=== PATIENT | female | born 1985 | race Two or more races ===

== ENCOUNTER 2017-05-07 10:57 | Inpatient (IN) | payer MEDICAID, OTHER ==
[~2017-05-07] VITALS: Ht 170.2 cm; Wt 25.2 kg
[~2017-05-07 10:57] MED LIST: NICOTINE 14 MG/24 HR TRANSDERMAL TD SCH
[2017-05-07] MEDS ORDERED: IRON18TA2 PO (11:06)
[2017-05-07] MEDS ORDERED: SUCR1TA PO (11:06)
[2017-05-07] MEDS ORDERED: NS 1,000 ML IV ONE (12:15)
[2017-05-07] MEDS ORDERED: SUCRALFATE 1 GM TAB PO ONE (12:15)
[2017-05-07] MEDS ORDERED: PANTOPRAZOLE 40MG INJ (PROTONIX) (C9113) IV ONE (12:15)
[2017-05-07] MEDS ORDERED: ONDANSETRON 4MG/2ML VIAL (J2405) IV ONE (12:15)
[2017-05-07 13:12] LABS: CONTROL LINE HCG INT CTR LINE PRESENT
[2017-05-07 13:18] LABS: INR 0.9
[2017-05-07 13:21] LABS: ALBUMIN 3.8 GM/DL (3.2-5.2); ALBUMIN/GLOBULIN RATIO 1.23 (1.00-1.93); ALKALINE PHOSPHATASE 37 U/L (45-117); ALT/SGPT 34 U/L (12-78); AMYLASE 30 U/L (25-115); ANION GAP 8 MEQ/L (8-16); AST/SGOT 21 U/L (15-37); BILIRUBIN,DIRECT 0.2 MG/DL (0.0-0.2); BILIRUBIN,TOTAL 0.7 MG/DL (0.2-1.0); BLOOD UREA NITROGEN 27 MG/DL (7-18); CALCIUM LEVEL 8.8 MG/DL (8.5-10.1); CARBON DIOXIDE LEVEL 28 MEQ/L (21-32); CHLORIDE LEVEL 102 MEQ/L (98-107); CREATININE FOR GFR 0.58 MG/DL (0.55-1.02); GLOMERULAR FILTRATION RATE > 60.0 (>60); GLUCOSE, FASTING 101 MG/DL (70-105); POTASSIUM SERUM 4.4 MEQ/L (3.5-5.1); SODIUM LEVEL 138 MEQ/L (136-145); TOTAL PROTEIN 6.9 GM/DL (6.4-8.2)
[2017-05-07 13:22] LABS: BASO % 0.2 % (0.0-1.0); EOS # 0.1 K/mm3 (0.0-0.50); EOS % 0.6 % (0.0-3.0); LARGE UNSTAINED CELL # 0.1 K/mm3 (0.0-0.4); LARGE UNSTAINED CELL % 0.7 % (0.0-4.0); LYMPH # 0.7 K/mm3 (1.5-4.5); LYMPH % 5.5 % (24.0-44.0); MEAN CORPUSCULAR HEMOGLOBIN 31.7 pg (27.0-33.0); MEAN CORPUSCULAR HGB CONC 33.4 g/dl (32.0-36.5); MEAN CORPUSCULAR VOLUME 95.1 fl (80.0-96.0); MONO # 0.8 K/mm3 (0.0-0.8); MONO % 6.6 % (0.0-5.0); NEUTROPHILS % 86.4 % (36.0-66.0); PLATELET COUNT, AUTOMATED 195 k/mm3 (150-450); RED CELL DISTRIBUTION WIDTH 12.5 % (11.5-14.5); WHITE BLOOD COUNT 11.6 K/mm3 (4.0-10.0)
[2017-05-07] MEDS ORDERED: FERR1TAB8 PO (13:30)
--- NOTE | 2017-05-07 13:54 | REP ---
Clinical: Acute abdominal pain. Technique: Upright view of the chest with supine and upright views of the abdomen and pelvis. Findings: Frontal upright view of the chest demonstrates no acute cardiopulmonary process or free air below the diaphragm to suspect pneumoperitoneum. Supine and upright views of the abdomen and pelvis demonstrate nonspecific bowel gas pattern without obstruction or perforation. No organomegaly. No abnormal calcifications. Skeletal structures normal for age. Impression: Nonspecific bowel gas pattern. Signed by Oswaldo Lora MD 05/07/2017 01:45 P
[2017-05-07] MEDS: NS 1,000 ML IV SCH ×2 (14:14→20:47)
[2017-05-07 15:30] VITALS: BP 121/65
[2017-05-07] MEDS: SUCRALFATE 1 GM TAB PO SCH ×2 (16:47→20:46)
[2017-05-07] MEDS ORDERED: PROPOFOL 200 MG/20 ML VIAL As Ordered ONE (19:13)
--- NOTE | 2017-05-07 19:24 | ROOR ---
Patient Name: Mora Samuel Procedure Date: 05/07/2017 6:58 PM Date of : 1985 Age: 32 Room: Main OR Gender: Female Note Status: Finalized Procedure: Upper GI endoscopy Indications: Hematemesis Providers: Gilberto LIMA MD Referring MD: 2. Inpatient 2. Inpatient Requesting Provider: Medicines: Monitored Anesthesia Care Complications: No immediate complications. Procedure: Pre-Anesthesia Assessment: - The heart rate, respiratory rate, oxygen saturations, blood pressure, adequacy of pulmonary ventilation, and response to care were monitored throughout the procedure. The Endoscope was introduced through the mouth, and advanced to the second part of duodenum. The upper GI endoscopy was accomplished without difficulty. The patient tolerated the procedure well. Findings: A medium non-bleeding Rose Marie-Porter tear with stigmata of recent bleeding was found. The exam was otherwise without abnormality. Impression: - Rose Marie-Porter tear in distal esophagus with surrounding erythema. - The examination was otherwise normal. - No specimens collected. Recommendation: - Clear liquid diet today.Observe patient's clinical course for rebleeding over 24 hrs. - Continue IV protonix today, then can change to 40 PO bid tomorrow. Gilberto Lima MD Gilberto LIMA MD 05/07/2017 7:24:07 PM This report has been signed electronically. Number of Addenda: 0 Note Initiated On: 05/07/2017 6:58 PM Estimated Blood Loss: Estimated blood loss: none.
[2017-05-07] MEDS ORDERED: LR 1,000 ML IV SCH (19:45)
[2017-05-07 20:25] VITALS: BP 121/77
[2017-05-07] MEDS ORDERED: NICOTINE 14 MG/24 HR TRANSDERMAL TD ONE (20:30)
[2017-05-07 20:40] VITALS: BP 116/76
--- NOTE | 2017-05-07 21:00 | HPE ---
DATE OF ADMISSION: 05/07/2017 CODE STATUS: Full code. PRIMARY CARE PROVIDER: None listed. CHIEF COMPLAINT: Abdominal pain with hematemesis. HISTORY OF PRESENT ILLNESS: A 32-year-old female who was in her normal state of health until this morning when she stated that she has had three episodes of hematemesis which initially started out as dark tarry-looking emesis that had progressed to bright red blood. She has had one bowel movement this morning which additionally did appear to be chrissy and melanotic, and she has had some vague upper abdominal dull achy, abdominal pain with no radiation to her back. She has had a decreased appetite. She does smoke a pack a day. She drinks alcohol on rare occasion, but did have a couple of beers last night. She denies any history of trauma. No previous history of gastric or peptic ulcer disease. She states that she has never had an esophagogastroduodenoscopy (EGD) or colonoscopy. PAST MEDICAL HISTORY: 1. History of iron-deficiency anemia. 2. Tobacco use. PAST SURGICAL HISTORY: Two (C) sections in the past. FAMILY HISTORY: Hypertensive heart disease with her father. SOCIAL HISTORY: She lives at home with her partner. She smokes a pack a day. She drinks alcohol, sometimes two beers per week. No recent travel. No sick contacts. ALLERGIES: No known drug allergies. HOME MEDICATIONS: Carafate which she takes sporadically. REVIEW OF SYSTEMS: CONSTITUTIONAL: She denies fevers, chills, rigors, decreased appetite. HEENT: She denies headache, lightheadedness, dizziness, blurry vision, double vision, or tinnitus. No difficulty with speech or swallow. GASTROINTESTINAL (GI): Hematemesis times three along with melena times one this morning, vague epigastric abdominal dull, achy pain. No radiation to her back. PULMONARY: No history of asthma. No shortness breath, productive sputum, cough , or hemoptysis. CARDIOVASCULAR: She denies chest pain, paroxysmal nocturnal dyspnea (PND), or orthopnea. No palpitations. No lower extremity edema. GENITOURINARY (): No dysuria, frequency, or hematuria. MUSCULOSKELETAL: No bone, muscle or joint pain, swelling or erythema. NEUROLOGIC: No paresthesias or paralysis. LYMPHATICS: No lumps, bumps, swelling of the neck, axilla or groin. No night sweats. No weight loss. HEMATOLOGY: No history of bleeding or bruising disorder. No history of venous thromboembolism. ONCOLOGY: No history of cancer. ENDOCRINE: Negative for diabetes. Negative for thyroid disorder. PSYCHIATRIC: No history of depression or anxiety. No suicidal ideation. No audiovisual hallucination. 10-point review of systems complete and pertinent positives are listed. PHYSICAL EXAMINATION: VITAL SIGNS: Temperature is 98.7, pulse 98, respiratory rate 18 and nonlabored, blood pressure is 123/73, SpO2 is 96% on room air. GENERAL: The patient appears to be in no acute distress. She is alert, oriented, pleasant to talk to. HEENT: Head is atraumatic, normocephalic. Eyes: Pupils are equal, round, and reactive to light and accommodation, nonicteric. No pallor. Throat is clear. NECK: Supple. No jugular venous distention (JVD). LUNGS: Clear to auscultation. HEART: Regular rate and rhythm. ABDOMEN: Vague epigastric tenderness with no rebound. Positive bowel sounds with no guarding. EXTREMITIES: No edema. No calf tenderness. Good range of motion. Deep tendon reflexes (DTRs) 2+ over 4+, pulses were equal. NEUROLOGIC: Cranial nerves II-XII grossly intact. LABORATORY DATA: White count 11.6, hemoglobin 13, platelets 195,000. Sodium 138, potassium 4.4, chloride 102, bicarbonate 28, anion gap 8, BUN is 27, creatinine 0.58, glucose is 101, calcium is 8.8, total bilirubin 0.7, direct bilirubin 0.2, AST 21, ALT 34, alkaline phosphatase 37, albumin 3.8, lipase 85. Serum hCG is negative. INR is 0.90. Blood consent was updated. Abdominal series, flat, upright and PA chest, nonspecific bowel gas pattern. No free air under the diaphragm. No acute cardiopulmonary processes noted. IMPRESSION: Ms. Samuel is a 32-year-old female who presents with new onset of hematemesis which appears to be an upper gastrointestinal (GI) bleed. At this point, she has received Protonix, Zofran and Carafate. She will need to be admitted for further observation, repeat hemoglobin and hematocrit, as well as to see if she needs to have blood transfusion which she does not appear to be in an immediate need of at this time. PROBLEM LIST: 1. Upper gastrointestinal (GI) bleed. 2. History of iron-deficiency anemia. 3. Tobacco use. 4. Occasional alcohol use. PLAN: The patient will be admitted to the medical/surgical floor. We will continue to cycle her vital signs, repeat hemoglobin and hematocrit every six hours. She is nothing by mouth currently. However, I will discuss the case with gastroenterology (GI). If she is planned to have an esophagogastroduodenoscopy (EGD) tomorrow, we will likely give her a clear-liquid diet and nothing by mouth after midnight. Deep vein thrombosis (DVT) prophylaxis with thromboembolic-deterrent stockings (TEDS) and sequentials. DISPOSITION: Anticipate the patient will be here greater than 2 midnights. She was encouraged to stay away from alcohol and also encouraged smoking cessation and education provided at bedside. MTDD
[2017-05-07 21:10] VITALS: BP 118/74
[2017-05-07 21:40] VITALS: BP 117/78
[2017-05-07 22:40] VITALS: BP 97/54
[2017-05-07] MEDS: PANTOPRAZOLE 40MG INJ (PROTONIX) (C9113) IV SCH (23:51)
[2017-05-08] VITALS (10 sets, daily range): BP systolic 101–113; BP diastolic 65–82
[2017-05-08] MEDS: NS 1,000 ML IV SCH ×3 (04:28→22:43)
[2017-05-08 07:25] LABS: MEAN CORPUSCULAR HGB CONC 33.3 g/dl (32.0-36.5); MEAN CORPUSCULAR VOLUME 96.1 fl (80.0-96.0); RED CELL DISTRIBUTION WIDTH 12.6 % (11.5-14.5); WHITE BLOOD COUNT 8.3 K/mm3 (4.0-10.0)
[2017-05-08 07:45] LABS: ANION GAP 7 MEQ/L (8-16); BLOOD UREA NITROGEN 8 MG/DL (7-18); CALCIUM LEVEL 7.4 MG/DL (8.5-10.1); CARBON DIOXIDE LEVEL 25 MEQ/L (21-32); CHLORIDE LEVEL 110 MEQ/L (98-107); CREATININE FOR GFR 0.46 MG/DL (0.55-1.02); GLOMERULAR FILTRATION RATE > 60.0 (>60); GLUCOSE, FASTING 83 MG/DL (70-105); POTASSIUM SERUM 3.7 MEQ/L (3.5-5.1); SODIUM LEVEL 142 MEQ/L (136-145)
[2017-05-08] MEDS: SUCRALFATE 1 GM TAB PO SCH ×4 (08:53→20:02)
[2017-05-08] MEDS: NICOTINE 14 MG/24 HR TRANSDERMAL TD SCH (08:54)
[2017-05-08] MEDS: PANTOPRAZOLE 40MG INJ (PROTONIX) (C9113) IV SCH ×2 (12:32→23:28)
--- NOTE | 2017-05-08 14:01 | IPN ---
DATE: 05/08/2017 Ms. Samuel is feeling well today. She is tolerating a full liquid diet. There are no complaints of pain, chest pain, shortness of breath. In fact, she would like to go home. PHYSICAL EXAMINATION: VITAL SIGNS: Temperature 98.6, pulse 81, respiratory rate 18, blood pressure 113/79, 99% on room air. No bowel movements. She is awake, appropriately interactive, pleasantly conversant. Breathing is symmetrical and rested. Heart is regular rate and rhythm. Abdomen is soft, doughy, nontender. White cell count 8.3, hemoglobin 9.3, platelets of 145. Repeat hemoglobin this noontime is 9.8. Creatinine 0.46. ASSESSMENT: This is a 32-year-old with Rose Marie-Porter tear and acute blood loss anemia. PLAN: 1. Gastrointestinal. Discussed the case with Dr. Lopez. He estimates that there is a 20% risk of rebleeding in this instance. Recommend continuing full liquid diet and monitoring hemoglobin and hematocrit and if the patient goes without rebleeding for 48 to 72 hours from the last bleeding episode, can likely be discharged home without difficulty. 2. The patient has a history of iron deficiency anemia. 3. The patient has a history of tobacco use. 4. The patient has a history or occasional alcohol use.
[2017-05-08] MEDS ORDERED: ACETAMINOPHEN TAB 650MG DOSE (2X325MG) PO PRN (18:15)
[2017-05-08] MEDS ORDERED: diphenhydrAMINE 25 MG CAP PO ONE (22:15)
[2017-05-09 04:00] VITALS: BP 91/71
[2017-05-09] MEDS: NS 1,000 ML IV SCH ×2 (06:25→14:21)
[2017-05-09] MEDS: SUCRALFATE 1 GM TAB PO SCH ×2 (08:41→12:46)
[2017-05-09] MEDS: NICOTINE 14 MG/24 HR TRANSDERMAL TD SCH (08:41)
[2017-05-09 09:26] LABS: MEAN CORPUSCULAR HGB CONC 34.3 g/dl (32.0-36.5); MEAN CORPUSCULAR VOLUME 96.3 fl (80.0-96.0); RED CELL DISTRIBUTION WIDTH 12.2 % (11.5-14.5); WHITE BLOOD COUNT 4.8 K/mm3 (4.0-10.0)
[2017-05-09 09:55] LABS: ANION GAP 5 MEQ/L (8-16); BLOOD UREA NITROGEN 3 MG/DL (7-18); CALCIUM LEVEL 8.2 MG/DL (8.5-10.1); CARBON DIOXIDE LEVEL 30 MEQ/L (21-32); CHLORIDE LEVEL 107 MEQ/L (98-107); CREATININE FOR GFR 0.46 MG/DL (0.55-1.02); GLOMERULAR FILTRATION RATE > 60.0 (>60); GLUCOSE, FASTING 76 MG/DL (70-105); SODIUM LEVEL 142 MEQ/L (136-145)
[2017-05-09] MEDS: PANTOPRAZOLE 40MG INJ (PROTONIX) (C9113) IV SCH (12:46)
[2017-05-09 14:00] VITALS: BP 97/60
[2017-05-09] MEDS ORDERED: OMEP40CA2 PO (15:46)
[2017-05-09] MEDS ORDERED: NICO14PA TD (15:46)
--- NOTE | 2017-05-09 16:59 | DSES ---
DATE OF ADMISSION: 05/07/2017 DATE OF DISCHARGE: 05/09/2017 PROCEDURE PERFORMED DURING HER STAY: Include esophagogastroduodenoscopy (EGD). No complications during her stay. DISCHARGE DIAGNOSES: 1. Acute blood loss anemia not requiring transfusion. 2. Rose Marie-Porter tear. 3. Iron deficiency anemia. 4. Tobacco use. SUMMARY OF HER PRESENTATION: This is a 32-year-old who had episodes of vomiting and retching which went on to develop hematemesis which is quite noticeable. She went on to have melanotic stool. She came to the hospital for evaluation. She was seen by Dr. Lopez, had an esophagogastroduodenoscopy (EGD), and fount to have a Mallor-Porter tear. She was monitored for approximately 48 hours from her last episode of bleeding. Hemoglobin and hematocrit was stable. She was tolerating an advancing diet and felt ready to go home. On the date of discharge, temperature is 97.6, pulse 93, respiratory rate 20, blood pressure was 97/60, and asymptomatic with a stable hemoglobin and hematocrit. Mucous membranes moist. Neck is supple. Breathing is symmetrical and rested. Heart is in a regular rate and rhythm, not tachycardic. LABORATORY DATA: White cell count 4.8, hemoglobin 10.2, and platelets of 172. BUN is 3, creatinine 0.46. DISCHARGE INSTRUCTIONS: Include the followin. Followup with [facility] 05/19/2017 at 2:15 p.m. 2. Diet and activity as tolerated. MEDICATIONS AT THE TIME OF DISCHARGE: - nicotine patch 14 mg topically daily - omeprazole 40 mg by mouth twice a day - ferrous sulfate 325 mg by mouth daily - Carafate 1 gram by mouth four times a day
== END 2017-05-09 16:40 | disposition home or self-care (01) | DRG 242 ==
LOC: M ED 10:57 → M ED INP 14:14 → M MS4PR 15:39
PROVIDERS: ADMIT Hospitalist; ATTEND Internal Medicine
PROC: 0DJ08ZZ Inspection of Upper Intestinal Tract, Via Natural or Artificial Opening Endoscopic (ICD-10-PCS; principal; 2017-05-07 16:03)
DX: K22.6 Gastro-esophageal laceration-hemorrhage syndrome (principal); D62 Acute posthemorrhagic anemia; F17.200 Nicotine dependence, unspecified, uncomplicated; K92.0 Hematemesis

== ENCOUNTER → 2017-08-14 | Outpatient (REF) | payer OTHER ==
[~2017-08-14] MED LIST changes: +FERR1TAB8 PO; +IRON18TA2 PO; +NICO14PA TD; -NICOTINE 14 MG/24 HR TRANSDERMAL TD SCH; +OMEP40CA2 PO; +SUCR1TA PO
== END ==
LOC: M SFHCADAM 12:16
PROVIDERS: ATTEND Physician Assistant Medical
DX: D50.0 Iron deficiency anemia secondary to blood loss (chronic) (principal); F17.219 Nicotine dependence, cigarettes, with unspecified nicotine-induced disorders; Z82.3 Family history of stroke; Z53.9 Procedure and treatment not carried out, unspecified reason

== ENCOUNTER → 2017-08-27 | Outpatient (REF) | payer OTHER ==
[2017-08-27 20:23] LABS: BASO % 0.7 % (0.0-1.0); EOS # 0.1 10^3/uL (0.0-0.50); EOS % 1.7 % (0.0-3.0); HEMATOCRIT 43.2 % (36.0-47.0); HEMOGLOBIN 14.2 g/dl (12.0-16.0); IMMATURE GRANULOCYTE % 0.2 % (0-0); LYMPH # 1.2 10^3/uL (1.5-4.5); LYMPH % 20.3 % (24.0-44.0); MEAN CORPUSCULAR HEMOGLOBIN 29.2 pg (27.0-33.0); MEAN CORPUSCULAR HGB CONC 32.9 g/dl (32.0-36.5); MEAN CORPUSCULAR VOLUME 88.7 fl (80.0-96.0); MONO # 0.7 10^3/uL (0.0-0.8); MONO % 11.8 % (0.0-5.0); NEUTROPHILS # 3.9 10^3/uL (1.8-7.7); NEUTROPHILS % 65.3 % (36.0-66.0); PLATELET COUNT, AUTOMATED 232 10^3/uL (150-450); RED BLOOD COUNT 4.87 10^6/uL (4.00-5.40); RED CELL DISTRIBUTION WIDTH 13.6 % (11.5-14.5)
[2017-08-27 20:50] LABS: TOTAL 25(OH) VITAMIN D 15.5 NG/ML (30.0-100.0)
[2017-08-27 21:17] LABS: ALBUMIN/GLOBULIN RATIO 1.11 (1.00-1.93); ALKALINE PHOSPHATASE 44 U/L (45-117); ALT/SGPT 25 U/L (12-78); ANION GAP 9 MEQ/L (8-16); AST/SGOT 22 U/L (7-37); BILIRUBIN,TOTAL 0.4 MG/DL (0.2-1.0); BLOOD UREA NITROGEN 12 MG/DL (7-18); CARBON DIOXIDE LEVEL 27 MEQ/L (21-32); CHLORIDE LEVEL 104 MEQ/L (98-107); CHOLESTEROL LEVEL 199 MG/DL (<200); CHOLESTEROL RISK RATIO 3.491 (<5); FERRITIN 57 NG/ML (8-252); GLOMERULAR FILTRATION RATE > 60.0 (>60); GLUCOSE, FASTING 87 MG/DL (70-105); HDL CHOLESTEROL 57 MG/DL (>40); IRON (FE) 137 UG/DL (50-170); NON-HDL-C 142 MG/DL; PERCENT SATURATION 42.7 % (13.2-45.0); SODIUM LEVEL 140 MEQ/L (136-145); TOTAL IRON BINDING CAPACITY 321 UG/DL (250-450); TOTAL PROTEIN 7.6 GM/DL (6.4-8.2); TRIGLYCERIDES LEVEL 225 MG/DL (<150)
== END ==
LOC: M SFHCADAM 12:59
DX: D50.0 Iron deficiency anemia secondary to blood loss (chronic) (principal); F17.219 Nicotine dependence, cigarettes, with unspecified nicotine-induced disorders; Z82.3 Family history of stroke

== ENCOUNTER → 2017-08-27 | Outpatient (CLI) | payer OTHER | LOC: M ADAMS 12:55 | DX: M54.2 Cervicalgia (principal); D50.0 Iron deficiency anemia secondary to blood loss (chronic); Z82.3 Family history of stroke; F17.219 Nicotine dependence, cigarettes, with unspecified nicotine-induced disorders | CPT/HCPCS: 72050 ==

== ENCOUNTER → 2017-09-16 | Outpatient (CLI) | payer OTHER | LOC: M ADAMS 15:47 | DX: M25.511 Pain in right shoulder (principal) | CPT/HCPCS: 73030 ==

== ENCOUNTER → 2017-10-13 | Outpatient (REF) | payer OTHER ==
[2017-10-13 17:26] LABS: CHLAMYDIA DNA AMPLIFICATION NEGATIVE (NEGATIVE); GC DNA AMPLIFICATION NEGATIVE (NEGATIVE)
== END ==
LOC: M SFHCWAGY 15:33
DX: Z11.3 Encounter for screening for infections with a predominantly sexual mode of transmission (principal)

== ENCOUNTER → 2017-10-13 | Outpatient (REF) | payer OTHER ==
[2017-10-15 14:14] LABS: HPV HYBRID CAPTURE II Positive (Negative)
== END ==
LOC: M SFHCWAGY 14:31
DX: Z01.419 Encounter for gynecological examination (general) (routine) without abnormal findings (principal); Z11.51 Encounter for screening for human papillomavirus (HPV); R87.613 High grade squamous intraepithelial lesion on cytologic smear of cervix (HGSIL)
CPT/HCPCS: 88142

== ENCOUNTER → 2017-11-10 | Outpatient (REF) | payer OTHER | LOC: M SFHCWAGY 14:32 | DX: R87.613 High grade squamous intraepithelial lesion on cytologic smear of cervix (HGSIL) (principal); R87.810 Cervical high risk human papillomavirus (HPV) DNA test positive | CPT/HCPCS: 88304 ==

== ENCOUNTER → 2017-11-27 | Outpatient (CLI) | payer OTHER | LOC: M RAD 09:25 | DX: M54.12 Radiculopathy, cervical region (principal) | CPT/HCPCS: 72141 ==

== ENCOUNTER → 2018-01-12 | Outpatient (REF) | payer OTHER | LOC: M SFHCADAM 15:06 | DX: D50.0 Iron deficiency anemia secondary to blood loss (chronic) (principal); E55.9 Vitamin D deficiency, unspecified ==

== ENCOUNTER 2018-12-28 19:34 | Emergency (ER) | payer MEDICAID, OTHER ==
[~2018-12-28] VITALS: Ht 170.2 cm; Wt 52.2 kg
[2018-12-28 20:27] VITALS: BP 141/96
[2018-12-28] MEDS ORDERED: NS 1,000 ML IV SCH (21:30)
[2018-12-28 22:12] LABS: BASO % 0.8 % (0.0-1.0); EOS # 0.1 10^3/uL (0.0-0.50); EOS % 1.7 % (0.0-3.0); HEMATOCRIT 42.1 % (36.0-47.0); HEMOGLOBIN 15.3 g/dl (12.0-15.5); LYMPH # 1.7 10^3/uL (1.5-4.5); MEAN CORPUSCULAR HEMOGLOBIN 34.1 pg (27.0-33.0); MEAN CORPUSCULAR HGB CONC 36.3 g/dl (32.0-36.5); MEAN CORPUSCULAR VOLUME 93.8 fl (80.0-96.0); MONO # 0.3 10^3/uL (0.0-0.8); NEUTROPHILS # 1.5 10^3/uL (1.8-7.7); NEUTROPHILS % 41.9 % (36.0-66.0); PLATELET COUNT, AUTOMATED 108 10^3/uL (150-450); RED BLOOD COUNT 4.49 10^6/uL (4.00-5.40); WHITE BLOOD COUNT 3.6 10^3/uL (4.0-10.0)
--- NOTE | 2018-12-28 22:19 | ECGEPIP ---
Stationary ECG Study [facility] - ED Test Date: 2018-12-28 Pat Name: RAMOS BREAUX Department: Room: - Gender: F Patient Access Registrar: ROSS : 1985 Requested By: POLA FONG Order Number: [id number] Reading MD: Jomar Zee Measurements Intervals [place] Rate: 106 P: 81 MT: 153 QRS: 88 QRSD: 88 T: 61 QT: 326 QTc: 434 Interpretive Statements SINUS TACHYCARDIA INCOMPLETE RIGHT BUNDLE BRANCH BLOCK BENIGN EARLY REPOLARIZATION NO PRIORS FOR COMPARISON Electronically Signed On 12-28-2018 22:19:00 EDT by Jomar Zee
[2018-12-28 22:23] LABS: INR 0.91; PROTHROMBIN TIME 12.3 SECONDS (12.1-14.4)
[2018-12-28 22:35] LABS: AMPHETAMINES LEVEL URINE NEGATIVE (NEGATIVE); BARBITURATES URINE NEGATIVE (NEGATIVE); BENZODIAZEPINES URINE POSITIVE (NEGATIVE); CANNABINOIDS URINE POSITIVE (NEGATIVE); COCAINE METABOLITE URINE NEGATIVE (NEGATIVE); METHADONE URINE NEGATIVE (NEGATIVE); OPIATES URINE NEGATIVE (NEGATIVE); PHENCYCLIDINE URINE NEGATIVE (NEGATIVE)
[2018-12-28 23:20] LABS: BLOOD UREA NITROGEN 10 MG/DL (7-18); CALCIUM LEVEL 7.5 MG/DL (8.5-10.1); CARBON DIOXIDE LEVEL 29 MEQ/L (21-32); CHLORIDE LEVEL 105 MEQ/L (98-107); CK-MB VALUE MASS < 1.0 NG/ML (<3.6); CPK CREATINE PHOSPHOKINASE 180 U/L (26-192); CREATININE FOR GFR 0.68 MG/DL (0.55-1.30); ETHYL ALCOHOL (ETHANOL) 0.205 % (0.000-0.010); FREE T4 0.81 NG/DL (0.76-1.46); GLOMERULAR FILTRATION RATE > 60.0 (>60); GLUCOSE, FASTING 116 MG/DL (70-100); MB/CK RELATIVE INDEX 0.56 (< OR =4); SODIUM LEVEL 141 MEQ/L (136-145); TROPONIN I < 0.02 NG/ML (< 0.10)
== END 2018-12-28 23:49 | disposition home or self-care (01) ==
LOC: M ED 19:34
DX: F41.9 Anxiety disorder, unspecified (principal); D64.9 Anemia, unspecified; F17.210 Nicotine dependence, cigarettes, uncomplicated; Z79.899 Other long term (current) drug therapy
CPT/HCPCS: 36415; 80048; 80307; 81001; 82550; 82553; 84439; 84443; 85025; 85610; 93005; 99284; G0480

== ENCOUNTER → 2019-08-06 | Outpatient (CLI) | payer OTHER ==
[~2019-08-06] MED LIST changes: -OMEP40CA2 PO; +OMEP40CA97 PO
--- NOTE | 2019-08-06 12:27 | REP ---
REASON FOR EXAM: COMPARISON: None. FINDINGS: The superior mediastinal structures are midline. The cardiac silhouette is unremarkable in size, shape, and position. The diaphragmatic surfaces of the lungs are regular, and the costophrenic angles are clear. The pulmonary marie are clear. The imaged osseous structures are intact. IMPRESSION: There is no acute cardiopulmonary disease. Electronically Signed by Samy Lott DO 08/06/2019 02:42 P
== END ==
LOC: M ADAMS 10:59
PROVIDERS: ATTEND Physician Assistant Medical
DX: R05 Cough (principal)

== ENCOUNTER 2019-10-03 19:07 | Emergency (ER) | payer OTHER ==
[~2019-10-03] VITALS: Ht 170.2 cm; Wt 53.2 kg
[2019-10-03] MEDS ORDERED: LORA-674 (20:08)
[2019-10-03] MEDS ORDERED: VENTAER INH (20:51)
[2019-10-03] MEDS ORDERED: INDO50CA91 PO (20:51)
[2019-10-03] MEDS ORDERED: BENZ200C70 PO (20:51)
[2019-10-03] MEDS ORDERED: BENZONATATE 100 MG CAP PO ONE (21:00)
[2019-10-03] MEDS ORDERED: INDOMETHACIN 25 MG CAP PO ONE (21:00)
[2019-10-03 21:14] VITALS: BP 139/86
--- NOTE | 2019-10-04 08:12 | REP ---
Clinical: Cough and left-sided chest pain . Comparison: 08/06/2019 . Technique: PA and lateral. Findings: The mediastinum and cardiac silhouette are normal. The lung marie are clear and without acute consolidation, effusion, or pneumothorax. The skeletal structures are intact and normal. Impression: 1. No acute cardiopulmonary process. Electronically Signed by Oswaldo Lora MD 10/04/2019 08:04 A
== END 2019-10-03 21:15 | disposition home or self-care (01) ==
LOC: M ED 19:07
DX: R05 Cough (principal); F17.218 Nicotine dependence, cigarettes, with other nicotine-induced disorders

== ENCOUNTER 2020-07-14 05:04 | Emergency (ER) | payer OTHER ==
[~2020-07-14] VITALS: Ht 170.2 cm; Wt 45.6 kg
[2020-07-14 05:04] VITALS: BP 181/106
[~2020-07-14 05:04] MED LIST changes: +BENZ200C70 PO; +INDO50CA91 PO; +LORA-674; +VENTAER INH
[2020-07-14] MEDS ORDERED: IBUP40TA PO (05:09)
[2020-07-14] MEDS ORDERED: OMEP20TA9 PO (05:09)
[2020-07-14] MEDS ORDERED: diazePAM 5 MG TAB PO ONE (06:30)
[2020-07-14] MEDS ORDERED: LIDOCAINE 1% MDV 20ML VIAL SC ONE (06:30)
[2020-07-14] MEDS ORDERED: CYCL-707 PO (06:54)
[2020-07-14] MEDS ORDERED: LIDO5DIS41 TOP (06:54)
[2020-07-14] MEDS ORDERED: LIDOCAINE 5% (LIDODERM) PATCH TD ONE (07:00)
[2020-07-14] MEDS ORDERED: **NOTE PATIENT COMMENT** MISC XX ONE (19:00)
== END 2020-07-14 07:02 | disposition home or self-care (01) ==
LOC: M ED 05:04
DX: M62.838 Other muscle spasm (principal); I10 Essential (primary) hypertension; F17.200 Nicotine dependence, unspecified, uncomplicated

== ENCOUNTER 2021-01-02 01:19 | Inpatient (IN) | payer OTHER, SELFPAY ==
[~2021-01-02] VITALS: Ht 170.2 cm; Wt 44.3 kg
[~2021-01-02 01:19] MED LIST changes: +CYCL-707 PO; +IBUP1TAB5 PO; +LIDO5DIS41 TOP; +OMEP20TA2 PO
[2021-01-02 02:12] LABS: HEMATOCRIT 35.2 % (36.0-47.0); HEMOGLOBIN 12.7 g/dl (12.0-15.5); MEAN CORPUSCULAR HEMOGLOBIN 35.4 pg (27.0-33.0); MEAN CORPUSCULAR HGB CONC 36.1 g/dl (32.0-36.5); MEAN CORPUSCULAR VOLUME 98.1 fl (80.0-96.0); PLATELET COUNT, AUTOMATED 149 10^3/uL (150-450); RED BLOOD COUNT 3.59 10^6/uL (4.00-5.40); WHITE BLOOD COUNT 13.8 10^3/uL (4.0-10.0)
[2021-01-02 02:52] LABS: ACETAMINOPHEN LEVEL < 2.0 UG/ML (10.0-30.0); ALBUMIN 4.3 GM/DL (3.2-5.2); ALT/SGPT 85 U/L (12-78); AMPHETAMINES LEVEL URINE NEGATIVE (NEGATIVE); BARBITURATES URINE NEGATIVE (NEGATIVE); BENZODIAZEPINES URINE NEGATIVE (NEGATIVE); BILIRUBIN,DIRECT 1.1 MG/DL (0.0-0.2); BILIRUBIN,TOTAL 2.2 MG/DL (0.2-1.0); BLOOD UREA NITROGEN 13 MG/DL (7-18); CALCIUM LEVEL 8.9 MG/DL (8.5-10.1); CANNABINOIDS URINE POSITIVE (NEGATIVE); CARBON DIOXIDE LEVEL 33 MEQ/L (21-32); CHLORIDE LEVEL 83 MEQ/L (98-107); COCAINE METABOLITE URINE NEGATIVE (NEGATIVE); ETHYL ALCOHOL (ETHANOL) < 0.003 % (0.000-0.010); GLOMERULAR FILTRATION RATE > 60.0 (>60); GLUCOSE, FASTING 80 MG/DL (70-100); METHADONE URINE NEGATIVE (NEGATIVE); OPIATES URINE NEGATIVE (NEGATIVE); PHENCYCLIDINE URINE NEGATIVE (NEGATIVE); SALICYLATE LEVEL 2.5 MG/DL (5.0-30.0); SODIUM LEVEL 131 MEQ/L (136-145); TOTAL PROTEIN 7.6 GM/DL (6.4-8.2)
[2021-01-02] MEDS ORDERED: POTASSIUM CHLORIDE 10 MEQ SR TABLET PO ONE ×2 (03:20→04:25)
[2021-01-02] MEDS ORDERED: KCL 10MEQ/100ML SWI (KRUN) 10 MEQ in IV 1 EA IV ONE (03:20)
[2021-01-02 03:32] LABS: MAGNESIUM LEVEL 1.5 MG/DL (1.8-2.4)
[2021-01-02] MEDS ORDERED: MAGNESIUM OXIDE 400MG TAB (MAG-OX) PO ONE (04:25)
[2021-01-02] MEDS ORDERED: MAG SULF 1GM/100ML (MAG RUN) 1 GM in IV 1 EA IV ONE (04:25)
[2021-01-02] MEDS ORDERED: LORazepam 2 MG/ML VIAL IV STA ×2 (04:52→08:23)
[2021-01-02] MEDS: OXAZEPAM 15 MG CAP PO SCH ×4 (06:00→23:00)
--- NOTE | 2021-01-02 06:20 | HPEPDOC ---
[facility] Medical History & Physical Date of Admission January 02, 2021 Date of Service: January 02, 2021 Attending Physician: KURTIS NOBLE MD History and Physical CHIEF COMPLAINT: altered mental status HISTORY OF PRESENT ILLNESS: Mora Samuel is a 35 year old female who presented to the ED today after being found by Development Chemist Department outside of her home screaming. The patient was not making sense and was hallucinating about seeing her father in the river. Per report she also stated he was sitting in the car in the passenger seat. EMS reports the patient continued to hallucinate during the ride to the hospital. During my evaluation, the patient told me she had redness in her eye. She was also hallucinating and speaking to other people who were not in the room during my evaluation. Regarding her symptoms, she told me the only thing bothering her was her right eye. She is a poor historian and had difficulty staying on topic to answer questions about her history or review of systems. Patient history is obtained mainly from chart review due to the patient's confusion PAST MEDICAL HISTORY: GERD Iron deficiency anemia Vitamin D deficiency Migraines Alcohol abuse Rose Marie Porter tear 2017 PAST SURGICAL HISTORY: section x2 EGD LEEP SOCIAL HISTORY: Admits to smoking 1/2 pack a day of cigarettes. States she drinks 2-3 beers or Smirnoff bottled drinks but not daily. States she smoke marijuana most days. Denies IV drug use. FAMILY HISTORY: Father: HTN, CVA, hyperlipidemia Mother: brain surgery after fall, HTN ALLERGIES: Please see below. REVIEW OF SYSTEMS: Unable to obtain full ROS due to altered mental status HOME MEDICATIONS: Please see below. PHYSICAL EXAMINATION: VITAL SIGNS: See below GENERAL: Alert, comfortable, in no acute distress HEENT: Normocephalic, atraumatic, sclera anicteric, conjunctiva clear, moist mucous membranes NECK: Supple, trachea midline, no lymphadenopathy CARDIOVASCULAR: Tachycardic with regular rhythm, normal S1 and S2. No murmurs, rubs, or gallops RESPIRATORY: Clear to auscultation bilaterally with equal air entry bilaterally. No wheezing, rhonchi, or rales. ABDOMEN: Soft, nontender, nondistended, bowel sounds present, no masses or hepatosplenomegaly appreciated EXTREMITIES: No cyanosis or edema. Pulses 2+/4 in bilateral upper and lower extremities SKIN: Some bruising noted on the extremities NEUROLOGIC: Alert and oriented x1 to person. Not oriented to place or time. No focal deficits appreciated PSYCHIATRIC: Tangential thought process, reports visual and auditory hallucinations of other people in the room who are bothering her and not acting right. She has difficultly maintaining eye contact and sitting still. No aggressive behavior during my evaluation. LABORATORY DATA: See below. IMAGING: None MICROBIOLOGY: Please see below. ASSESSMENT: 35 year old female with PMHx including alcohol abuse presented with altered mental status likely 2/2 alcohol withdrawal found to have electrolyte abnormalities, admitted for electrolyte replacement and psych eval PLAN: # Altered mental status 2/2 alcohol withdrawal vs psychosis - CIWA protocol with prn ativan - once electrolytes are replaced can consult psych for evaluation - sitter # Electrolyte imbalance - hyponatremia, hypochloremia, hypokalemia, and hypomagnesemia - suspect this is 2/2 her alcohol abuse and likely vomiting/diarrhea associated with withdrawal - s/p oral and IV replacement of K and Mg in the ED - recheck labs and continue to replete as indicated # Abnormal liver profile - likely 2/2 alcohol abuse given the ration of AST to ALT - follow up labs outpatient # GERD - contniue protonix # hx of iron deficiency anemia - H/H WNL, no current anemia - continue iron supplement DVT prophylaxis: SC lovenox Disposition: admitted to med/surg pending improvement of electrolytes, will need psych consult when medically stable Vital Signs Vital Signs Date Time Temp Pulse Resp B/P (MAP) Pulse Ox O2 Delivery O2 Flow Rate FiO2 01/02/21 04:34 112 97 01/02/21 04:30 140/76 (97) 01/02/21 01:53 99.3 16 Room Air Laboratory Data Labs 24H Laboratory Tests 2 01/02/21 01:58: Nucleated Red Blood Cells % (auto) 0.0, Anion Gap 15, Glomerular Filtration Rate > 60.0, Calcium Level 8.9, Magnesium Level 1.5L, Total Bilirubin 2.2H, Direct Bilirubin 1.1H, Aspartate Amino Transf (AST/SGOT) 129H, Alanine Aminotransferase (ALT/SGPT) 85H, Alkaline Phosphatase 94, Total Protein 7.6, Albumin 4.3, Albumin/Globulin Ratio 1.3, Thyroid Stimulating Hormone (TSH) 1.660, Salicylates Level 2.5L, Urine Opiates Screen NEGATIVE, Urine Methadone Screen NEGATIVE, Acetaminophen Level < 2.0L, Urine Barbiturates Screen NEGATIVE, Urine Phencyc lidine Screen NEGATIVE, Urine Amphetamines Screen NEGATIVE, Urine Benzodiazepines Screen NEGATIVE, Urine Cocaine Metabolite Screen NEGATIVE, Urine Cannabinoids Screen POSITIVEH, Ethyl Alcohol Level < 0.003 CBC/BMP Laboratory Tests 01/02/21 01:58 Home Medications Scheduled Ferrous Sulfate (Ferrous Sulfate) 325 Mg Tablet, 325 MG PO BID Multivitamins (Thera M Plus Tablet) 1 Each Tablet, 1 TAB PO DAILY Pantoprazole Sodium (Pantoprazole Sodium) 40 Mg Tablet.dr, 40 MG PO BID Allergies Coded Allergies: No Known Allergies (Unverified , 12/28/18) GME ATTESTATION GME ATTESTATION My faculty preceptor for this patient encounter was physically present during the encounter and was fully available. All aspects of the patient interview, examination, medical decision making process, and medical care plan development were reviewed and approved by the faculty preceptor. The faculty preceptor is aware and concurs with the plan as stated in the body of this note and will attest to such by his/her cosignature. GIUSEPPE AGARWAL D.O. January 02, 2021 06:20
[2021-01-02] MEDS ORDERED: VITMTA PO (06:37)
[2021-01-02] MEDS ORDERED: FERR1TAB8 PO (06:37)
[2021-01-02] MEDS ORDERED: PROT20TA11 PO (06:37)
[2021-01-02] MEDS ORDERED: PANT-23 PO (06:39)
[2021-01-02 06:54] LABS: RSV AMPLIFICATION NEGATIVE (NEGATIVE)
[2021-01-02] MEDS: LORazepam 2 MG TAB PO PRN ×3 (07:26→22:03)
[2021-01-02] MEDS: FOLIC ACID 1 MG TAB PO SCH (07:26)
[2021-01-02] MEDS: PANTOPRAZOLE 40MG TAB (PROTONIX) PO SCH ×2 (07:26→20:33)
[2021-01-02] MEDS: THIAMINE 100 MG TAB PO SCH ×2 (07:26→20:32)
[2021-01-02] MEDS: MULTIVITAMINS/MINERALS THERAP 1 TAB PO SCH (07:26)
[2021-01-02] MEDS: FERROUS SULFATE 325MG TAB PO SCH ×2 (07:26→20:32)
[2021-01-02] MEDS ORDERED: LORazepam 2 MG/ML VIAL IV PRN (08:25)
[2021-01-02 09:00] VITALS: BP 118/68
[2021-01-02] MEDS: ENOXAPARIN 40MG/0.4ML SYRINGE (J1650 PER 10MG) SC SCH (09:00)
[2021-01-02 09:15] VITALS: BP 118/68
[2021-01-02 09:39] LABS: BLOOD UREA NITROGEN 12 MG/DL (7-18); CALCIUM LEVEL 8.6 MG/DL (8.5-10.1); CARBON DIOXIDE LEVEL 33 MEQ/L (21-32); CHLORIDE LEVEL 86 MEQ/L (98-107); CREATININE FOR GFR 0.68 MG/DL (0.55-1.30); GLOMERULAR FILTRATION RATE > 60.0 (>60); GLUCOSE, FASTING 77 MG/DL (70-100); MAGNESIUM LEVEL 2.5 MG/DL (1.8-2.4); SODIUM LEVEL 132 MEQ/L (136-145)
[2021-01-02] MEDS: KCL 20MEQ in NS 1000ML 1,000 ML IV SCH ×2 (12:21→22:56)
[2021-01-02 19:31] LABS: BLOOD UREA NITROGEN 12 MG/DL (7-18); CALCIUM LEVEL 9.1 MG/DL (8.5-10.1); CARBON DIOXIDE LEVEL 33 MEQ/L (21-32); CHLORIDE LEVEL 91 MEQ/L (98-107); CREATININE FOR GFR 0.62 MG/DL (0.55-1.30); GLOMERULAR FILTRATION RATE > 60.0 (>60); GLUCOSE, FASTING 127 MG/DL (70-100); POTASSIUM SERUM 2.1 MEQ/L (3.5-5.1); SODIUM LEVEL 133 MEQ/L (136-145)
[2021-01-02] MEDS ORDERED: POTASSIUM CHLORIDE 10% LIQ 20 MEQ/15 ML UDC PO ONE (19:45)
[2021-01-02 22:00] VITALS: BP 118/78
[2021-01-03] MEDS ORDERED: NICOTINE 14 MG/24 HR TRANSDERMAL TD PRN (00:10)
[2021-01-03 06:00] VITALS: BP 126/87
[2021-01-03] MEDS: OXAZEPAM 15 MG CAP PO SCH (06:07)
[2021-01-03 06:35] LABS: HEMATOCRIT 34.6 % (36.0-47.0); HEMOGLOBIN 11.9 g/dl (12.0-15.5); MEAN CORPUSCULAR HEMOGLOBIN 35.2 pg (27.0-33.0); MEAN CORPUSCULAR HGB CONC 34.4 g/dl (32.0-36.5); MEAN CORPUSCULAR VOLUME 102.4 fl (80.0-96.0); PLATELET COUNT, AUTOMATED 167 10^3/uL (150-450); RED BLOOD COUNT 3.38 10^6/uL (4.00-5.40); WHITE BLOOD COUNT 5.7 10^3/uL (4.0-10.0)
[2021-01-03 07:03] LABS: BLOOD UREA NITROGEN 8 MG/DL (7-18); CALCIUM LEVEL 9.1 MG/DL (8.5-10.1); CARBON DIOXIDE LEVEL 35 MEQ/L (21-32); CHLORIDE LEVEL 100 MEQ/L (98-107); CREATININE FOR GFR 0.52 MG/DL (0.55-1.30); GLOMERULAR FILTRATION RATE > 60.0 (>60); GLUCOSE, FASTING 93 MG/DL (70-100); MAGNESIUM LEVEL 2.3 MG/DL (1.8-2.4); POTASSIUM SERUM 3.1 MEQ/L (3.5-5.1); SODIUM LEVEL 138 MEQ/L (136-145)
--- NOTE | 2021-01-03 07:28 | ECGEPIP ---
[facility] - ED Test Date: 2021-01-02 Pat Name: RAMOS BREAUX Department: Room: - Gender: Female Treatment Technician: MARIS : 1985 Requested By: NUHA Leal Order Number: [id number] Reading MD: Jomar Zee Measurements Intervals [place] Rate: 125 P: [place]: QRS: 86 QRSD: 80 T: 63 QT: 422 QTc: 609 Interpretive Statements Critical Test Result: Long QTc SINUS TACHYCARDIA PROLONGED QT INTERVAL BASELINE ARTIFACT AFFECTS INTERPRETATION Electronically Signed on 01-03-2021 7:28:48 EDT by Jomar Zee
[2021-01-03] MEDS: FOLIC ACID 1 MG TAB PO SCH (09:07)
[2021-01-03] MEDS: THIAMINE 100 MG TAB PO SCH (09:07)
[2021-01-03] MEDS: ENOXAPARIN 40MG/0.4ML SYRINGE (J1650 PER 10MG) SC SCH (09:07)
[2021-01-03] MEDS: FERROUS SULFATE 325MG TAB PO SCH (09:08)
[2021-01-03] MEDS: MULTIVITAMINS/MINERALS THERAP 1 TAB PO SCH (09:08)
[2021-01-03] MEDS: KCL 20MEQ in NS 1000ML 1,000 ML IV SCH (09:08)
[2021-01-03] MEDS: PANTOPRAZOLE 40MG TAB (PROTONIX) PO SCH (09:08)
[2021-01-03] MEDS ORDERED: THIA100TA PO (09:38)
[2021-01-03] MEDS ORDERED: FOLI1TAB11 PO (09:38)
[2021-01-03] MEDS ORDERED: POTASSIUM CHLORIDE 10 MEQ SR TABLET PO ONE (09:40)
[2021-01-03] MEDS ORDERED: OXAZ10CA3 PO (11:39)
[2021-01-03] MEDS: OXAZEPAM 10 MG CAP PO SCH ×2 (12:15→18:13)
--- NOTE | 2021-01-03 12:23 | DS.PDOC ---
Discharge Summary General Date of Admission January 02, 2021 at 05:31 Date of Discharge 01/03/2021 Specialist/Consultants Involve Psychiatry Discharge Summary PROCEDURES PERFORMED DURING STAY: [None]. ADMITTING DIAGNOSES: #EtOH withdrawal DISCHARGE DIAGNOSES: #EtOH withdrawal #GERD #Iron deficiency anemia #Vitamin D deficiency #Migraines #Alcohol abuse #Rose Marie Porter tear 2017 SOCIAL HISTORY: Admits to smoking 1/2 pack a day of cigarettes. States she drinks 2-3 beers or Smirnoff bottled drinks but not daily. States she smoke marijuana most days. Denies IV drug use. FAMILY HISTORY: Father: HTN, CVA, hyperlipidemia Mother: brain surgery after fall, HTN COMPLICATIONS/CHIEF COMPLAINT: Alcohol Abuse W/ Delirium, Hypokalemia, Hyponatrem. HISTORY OF PRESENT ILLNESS: 35F presented to the ED after being found by Patient Scheduling Coordinator Department outside of her home screaming. The patient was not making sense and was hallucinating about seeing her father in the river. Per report she also stated he was sitting in the car in the passenger seat. EMS reports the patient continued to hallucinate during the ride to the hospital. In the ED she was also hallucinating and speaking to other people who were not in the room. HOSPITAL COURSE: Patient was admitted for further evaluation and treatment. She was going through alcohol withdrawal. On hospital day one she responded well to treatment with benzodiazepine therapy. Several hours later, she was calm and her agitated episodes had abated. The following day she was evaluated again, and she had some recollection the prior day's events. She denied any suicidal or homicidal ideation. Psychiatry was consulted for further evaluation and deemed to be safe for discharge home with outpatient follow-up. Hospital stay was otherwise unremarkable. Her mother had called the floor concerned about her daughter's return home. She was reassured that she had been seen and evaluated and deemed safe for return home. Further discussion with the patient regarding her needs and any social stressors, and patient stated she was not interested in any time off work. She stated this was discussed with psychiatry as well. # Altered mental status 2/2 alcohol withdrawal vs psychosis - CIWA protocol with prn ativan - evaluated by psychiatry - discharge home with o/p follow up # Electrolyte imbalance - hyponatremia, hypochloremia, hypokalemia, and hypomagnesemia - suspect this is 2/2 her alcohol abuse and likely vomiting/diarrhea associated with withdrawal - s/p oral and IV replacement of K and Mg in the ED - resolved # Abnormal liver profile - likely 2/2 alcohol abuse given the ration of AST to ALT - follow up labs outpatient # GERD - contniue protonix # hx of iron deficiency anemia - H/H WNL, no current anemia - continue iron supplement DISCHARGE MEDICATIONS: Please see below. ALLERGIES: Please see below. PHYSICAL EXAMINATION ON DISCHARGE: VITAL SIGNS: Please see below. GENERAL: NAD, lying comfortably in bed, underweight HEENT: NC/AT, EOMI Lungs: CTA B/L Heart: +S1S2, RRR Abd: soft, NT, +BS Ext: no edema LABORATORY DATA: Please see below. ACTIVITY: [As tolerated]. DISPOSITION: Discharge home DISCHARGE INSTRUCTIONS: 1. follow up pcp in 3-5 days 2. follow as per psychiatry 3. stop alcohol and illicit drug abuse DISCHARGE CONDITION: [Stable]. TIME SPENT ON DISCHARGE: 35 minutes. Vital Signs/I&Os Vital Signs Date Time Temp Pulse Resp B/P (MAP) Pulse Ox O2 Delivery O2 Flow Rate FiO2 01/03/21 06:00 98.0 76 18 126/87 (100) 96 01/02/21 22:00 Room Air I&O- Last 24 Hours up to 6 AM 01/03/21 06:00 Intake Total 2020 ml Balance 2020 ml Laboratory Data Labs 24H Laboratory Tests 2 01/02/21 18:51: Anion Gap 9, Glomerular Filtration Rate > 60.0, Calcium Level 9.1 01/03/21 06:00: Anion Gap 3L, Glomerular Filtration Rate > 60.0, Calcium Level 9.1, Nucleated Red Blood Cells % (auto) 0.0, Magnesium Level 2.3 CBC/BMP Laboratory Tests 01/02/21 18:51 01/03/21 00:16 01/03/21 06:00 Discharge Medications Scheduled Ferrous Sulfate (Ferrous Sulfate) 325 Mg Tablet, 325 MG PO BID, (Reported) Folic Acid (Folic Acid) 1 Mg Tablet, 1 MG PO DAILY Multivitamins (Thera M Plus Tablet) 1 Each Tablet, 1 TAB PO DAILY, (Reported) Oxazepam (Oxazepam) 10 Mg Capsule, 10 MG PO Q12H Start 01/03/2021, 11:00PM Pantoprazole Sodium (Pantoprazole Sodium) 40 Mg Tablet.dr, 40 MG PO BID, (Reported) Thiamine Hcl (Vitamin B-1) 100 Mg Tablet, 100 MG PO BID Allergies Coded Allergies: No Known Allergies (Unverified , 12/28/18) PEYTON CAMPOS MD January 03, 2021 12:23
[2021-01-03 14:00] VITALS: BP 113/76
[2021-01-03 14:43] VITALS: BP 113/76
--- NOTE | 2021-01-03 15:26 | MHCRPDOC ---
[facility] Consultation Consultation DATE OF CONSULTATION: 01/03/21 CONSULTATION REQUESTED BY: REASON FOR CONSULTATION: . Mental health evaluation after a possible alcohol withdrawal episode RELEVANT HISTORY: 35-year-old single female with no previous psychiatric history brought the emergency room after she became quite confused and experiencing visual hallucinations. 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 She is minimizing her drinking claiming that she just had the 1 or 2 cocktails a night, but last night she fell asleep and then started to have very bad dreams, which became a vivid nightmare and the she was also experiencing visual hallucinations after she woke up. She states that her 13-year-old son got alarmed by her behavior and called for the ambulance and was brought to emergency room yesterday afternoon. Patient was to admitted to medical floor. Apparently was treated for possible alcohol withdrawal. She reports she is feeling much better now and not hallucinating anymore and is requesting to go home. She is again minimizing any alcohol or drug abuse issues, but there is a strong likelihood that she was having acute withdrawal symptoms, but she is now reporting no hallucination. No paranoia, and denies any serious depression or suicidal thoughts and doesn't feel that she needs to stay in psychiatric treatment and is asking for discharge. PAST PSYCHIATRIC HISTORY: Denies any history PAST MEDICAL HISTORY: Denies any major medical issues FAMILY HISTORY: Mother: Has no contact with her biological mother] Father: of a heart attack Siblings: 2 brothers and 1 sisters. No psychiatric history Children: To teenage sons. No psychiatric issues PERSONAL AND SOCIAL HISTORY: The patient was born and raised in [place]. Resides in: [place] Marital Status: S Single Children: 2 Employment: Recently started working at the restaurant SUBSTANCE ABUSE HISTORY: Smoking: ETOH: Claims she drinks 1 or 2 drinks a day. not a reliable historian Illicit Drugs: Smokes pot LEGAL HISTORY: Denies any legal history. MENTAL STATUS EXAMINATION: Patient is a 35]-year old female, who is in no acute distress. Speech is rational coherent, organized. Language skills are good. Thought processes including: Clear, organized . Thought content: No psychotic symptoms. Abstract reasoning, and computation: Good. Description of associations: Good . Description of abnormal or psychotic thoughts: None . Judgment: , Fair. Insight: , Fair. Orientation to , well oriented. Recent and remote memory: Good. Attention span and concentration: Good. Language: Clear. Fund of knowledge: Average. Mood: , Moderately anxious, but denies any serious depression or suicidal thoughts. Affect: Full range, appropriate. DIAGNOSIS: 1. , Most likely acute alcohol withdrawal. Patient is denying any regular heavy use of alcohol and doesn't want any treatment PLAN: 1. Patient does not appear to be suicidal and doesn't appear to be severely depressed and is asking for discharge. Patient can be discharged when medically stable and patient is declining any psychiatric follow-up treatment . 2. . Vital Signs Vital Signs Date Time Temp Pulse Resp B/P (MAP) Pulse Ox O2 Delivery O2 Flow Rate FiO2 01/03/21 14:43 84 113/76 01/03/21 14:00 99.3 18 98 01/02/21 22:00 Room Air Laboratory Data 24H Labs Laboratory Tests 2 01/02/21 18:51: Anion Gap 9, Glomerular Filtration Rate > 60.0, Calcium Level 9.1 01/03/21 06:00: Anion Gap 3L, Glomerular Filtration Rate > 60.0, Calcium Level 9.1, Nucleated Red Blood Cells % (auto) 0.0, Magnesium Level 2.3 Home Medications Current Medications Current Medications Medications (Trade) Dose Ordered Sig/Joce Route PRN Reason Start Time Stop Time Status Last Admin Dose Admin Enoxaparin Sodium (Lovenox) 40 mg DAILY SC 01/02/21 09:00 01/03/21 09:07 Ferrous Sulfate (Ferrous Sulfate) 325 mg BID PO 01/02/21 09:00 01/03/21 09:08 Folic Acid (Folic Acid) 1 mg DAILY PO 01/02/21 09:00 01/03/21 09:07 Home Med (Med Rec Complete!) ASDIRECTED XX 01/02/21 06:40 01/02/21 06:42 DC Lorazepam (Ativan) 2 mg ASDIRECTED PRN PO SEE PROTOCOL 01/02/21 05:50 01/02/21 22:03 Lorazepam (Ativan) 2 mg Q4HP PRN IV AGITATION 01/02/21 08:25 Lorazepam (Ativan) 2 mg STAT STAT IV 01/02/21 04:52 01/02/21 04:53 DC 01/02/21 06:12 Lorazepam (Ativan) 2 mg STAT STAT IV 01/02/21 08:23 01/02/21 08:25 DC 01/02/21 10:20 Multivitamins (Theragram-M) 1 tab DAILY PO 01/02/21 09:00 01/03/21 09:08 Nicotine (Nicoderm Cq 14mg) 1 patch DAILYPRN PRN TD NICOTINE WITHDRAWAL 01/03/21 00:10 01/03/21 00:14 Oxazepam (Serax) 10 mg Q6H PO 01/03/21 12:00 01/03/21 12:15 Oxazepam (Serax) 15 mg Q6H PO 01/02/21 06:00 01/03/21 09:40 DC 01/03/21 06:07 Pantoprazole Sodium (Protonix) 40 mg BID PO 01/02/21 09:00 01/03/21 09:08 Potassium Chloride/Sodium Chloride 1,000 ml @ 100 mls/hr Q10H IV 01/02/21 13:00 01/03/21 09:08 Thiamine HCl (Thiamine HCl) 100 mg BID PO 01/02/21 09:00 01/05/21 08:59 01/03/21 09:07 Scheduled Ferrous Sulfate (Ferrous Sulfate) 325 Mg Tablet, 325 MG PO BID, (Reported) Folic Acid (Folic Acid) 1 Mg Tablet, 1 MG PO DAILY Multivitamins (Thera M Plus Tablet) 1 Each Tablet, 1 TAB PO DAILY, (Reported) Oxazepam (Oxazepam) 10 Mg Capsule, 10 MG PO Q12H Start 01/03/2021, 11:00PM Pantoprazole Sodium (Pantoprazole Sodium) 40 Mg Tablet.dr, 40 MG PO BID, ( Reported) Thiamine Hcl (Vitamin B-1) 100 Mg Tablet, 100 MG PO BID Allergies Coded Allergies: No Known Allergies (Unverified , 12/28/18) GERALDINE WEBSTER M.D. January 03, 2021 15:26
== END 2021-01-03 18:25 | disposition home or self-care (01) | DRG 775 ==
LOC: M ED 01:19 → M ED INP 05:31 → ENRESERV 06:39 → M MSPAV 08:00
PROVIDERS: ADMIT Family Medicine; ATTEND Internal Medicine
DX: F10.232 Alcohol dependence with withdrawal with perceptual disturbance (principal); E87.8 Other disorders of electrolyte and fluid balance, not elsewhere classified; D50.9 Iron deficiency anemia, unspecified; F17.210 Nicotine dependence, cigarettes, uncomplicated; E87.1 Hypo-osmolality and hyponatremia; E83.42 Hypomagnesemia; R41.82 Altered mental status, unspecified; K21.9 Gastro-esophageal reflux disease without esophagitis; G43.909 Migraine, unspecified, not intractable, without status migrainosus; E87.6 Hypokalemia; R94.5 Abnormal results of liver function studies; Z79.899 Other long term (current) drug therapy; Z20.822 Contact with and (suspected) exposure to COVID-19

== ENCOUNTER 2021-10-13 12:46 | Emergency (ER) | payer MEDICAID, OTHER, SELFPAY ==
[~2021-10-13] VITALS: Ht 170.2 cm; Wt 52.3 kg
[~2021-10-13 12:46] MED LIST changes: +FOLI1TAB11 PO; +OMEP40CA4 PO; -OMEP40CA97 PO; +OXAZ10CA3 PO; +PANT-23 PO; +PROT20TA11 PO; +THIA100TA PO; +VITMTA PO
[2021-10-13] MEDS ORDERED: PRIL20TA2 PO (13:01)
[2021-10-13] MEDS ORDERED: KETOROLAC 30 MG/ML 1ML VIAL IV ONE (13:15)
[2021-10-13 13:51] LABS: BASO % 0.2 % (0.0-1.0); EOS % 0.3 % (0.0-3.0); HEMATOCRIT 39.5 % (36.0-47.0); HEMOGLOBIN 13.9 g/dl (12.0-15.5); LYMPH # 0.6 10^3/uL (1.5-5.0); LYMPH % 9.7 % (24.0-44.0); MEAN CORPUSCULAR HEMOGLOBIN 32.6 pg (27.0-33.0); MEAN CORPUSCULAR HGB CONC 35.2 g/dl (32.0-36.5); MEAN CORPUSCULAR VOLUME 92.7 fl (80.0-96.0); MONO # 0.6 10^3/uL (0.0-0.8); MONO % 10.5 % (2.0-8.0); NEUTROPHILS # 4.6 10^3/uL (1.5-8.5); PLATELET COUNT, AUTOMATED 130 10^3/uL (150-450); RED BLOOD COUNT 4.26 10^6/uL (4.00-5.40); WHITE BLOOD COUNT 5.8 10^3/uL (4.0-10.0)
[2021-10-13 14:21] LABS: HCG, SERUM QUALITATIVE NEGATIVE (NEGATIVE)
[2021-10-13 14:45] LABS: ALBUMIN 4.1 GM/DL (3.2-5.2); ALT/SGPT 97 U/L (12-78); BILIRUBIN,TOTAL 1.7 MG/DL (0.2-1.0); BLOOD UREA NITROGEN 6 MG/DL (7-18); CALCIUM LEVEL 9.2 MG/DL (8.5-10.1); CARBON DIOXIDE LEVEL 28 MEQ/L (21-32); CHLORIDE LEVEL 96 MEQ/L (98-107); CREATININE FOR GFR 0.61 MG/DL (0.55-1.30); FREE THYROXINE INDEX 2.7 % (1.3-4.8); GLOMERULAR FILTRATION RATE > 60.0 (>60); GLUCOSE, FASTING 153 MG/DL (70-100); POTASSIUM SERUM 2.6 MEQ/L (3.5-5.1); SODIUM LEVEL 137 MEQ/L (136-145); T UPTAKE 32 % (30-39); THYROXINE (T4) 8.5 UG/DL (4.5-12.0); TOTAL PROTEIN 7.7 GM/DL (6.4-8.2)
[2021-10-13] MEDS ORDERED: KCL 10MEQ/100ML SWI (KRUN) 10 MEQ in IV 1 EA IV ONE (14:50)
[2021-10-13] MEDS ORDERED: POTASSIUM CHLORIDE 10MEQ SR TABLET PO ONE ×2 (14:50→18:00)
[2021-10-13] MEDS ORDERED: ISOVUE-370 76% 100ML VIAL As Ordered ONE (15:35)
[2021-10-13 18:25] VITALS: BP 145/100
== END 2021-10-13 18:30 | disposition home or self-care (01) ==
LOC: M ED 12:46
DX: R09.1 Pleurisy (principal); E87.6 Hypokalemia; R94.31 Abnormal electrocardiogram [ECG] [EKG]; K21.9 Gastro-esophageal reflux disease without esophagitis; G43.909 Migraine, unspecified, not intractable, without status migrainosus; D50.9 Iron deficiency anemia, unspecified; F17.200 Nicotine dependence, unspecified, uncomplicated; F10.10 Alcohol abuse, uncomplicated
CPT/HCPCS: 71045; 71275; 80053; 84132; 84436; 84443; 84479; 84484; 84703; 85025; 93005; 96365; 96366; 96375; 99285; J1885; J3480; Q9967

== ENCOUNTER → 2021-11-08 | Outpatient (REF) | payer MEDICAID ==
[~2021-11-08] MED LIST changes: +PRIL20TA2 PO
== END ==
LOC: M SFHCADAM 15:49
PROVIDERS: ATTEND Physician Assistant Medical
DX: R05.9 Cough, unspecified (principal)
CPT/HCPCS: 87633; U0003

== ENCOUNTER 2022-01-12 10:32 | Inpatient (IN) | payer MEDICAID ==
[2022-01-12] VITALS (17 sets, daily range): BP systolic 113–183; BP diastolic 70–107
[~2022-01-12] VITALS: Ht 167.6 cm; Wt 42.7 kg
[~2022-01-12 10:32] MED LIST changes: +FOLIC ACID 1 MG TAB PO SCH; +MULTIVITAMINS/MINERALS THERAP 1 TAB PO SCH; +OMEPRAZOLE 20MG CAP PO SCH
[2022-01-12] MEDS ORDERED: NS 1,000 ML IV ONE (10:45)
[2022-01-12] MEDS: THIAMINE 100 MG TAB PO SCH ×2 (11:26→21:26)
[2022-01-12 11:36] LABS: BASO % 0.1 % (0.0-1.0); EOS % 0.2 % (0.0-3.0); HEMOGLOBIN 13.5 g/dl (12.0-15.5); LYMPH # 0.8 10^3/uL (1.5-5.0); LYMPH % 5.9 % (24.0-44.0); MEAN CORPUSCULAR HEMOGLOBIN 35.7 pg (27.0-33.0); MEAN CORPUSCULAR VOLUME 95.2 fl (80.0-96.0); MONO # 1.4 10^3/uL (0.0-0.8); MONO % 10.2 % (2.0-8.0); NEUTROPHILS # 11.2 10^3/uL (1.5-8.5); NEUTROPHILS % 82.9 % (36.0-66.0); RED BLOOD COUNT 3.78 10^6/uL (4.00-5.40); WHITE BLOOD COUNT 13.5 10^3/uL (4.0-10.0)
[2022-01-12 11:55] LABS: MEAN CORPUSCULAR HGB CONC 37.5 g/dl (32.0-36.5)
[2022-01-12 11:56] LABS: PLATELET COUNT, AUTOMATED 104 10^3/uL (150-450)
[2022-01-12 12:07] LABS: ACETAMINOPHEN LEVEL < 2.0 UG/ML (10.0-30.0); ALBUMIN 4.1 GM/DL (3.2-5.2); ALT/SGPT 49 U/L (12-78); BILIRUBIN,DIRECT 0.6 MG/DL (0.0-0.2); BILIRUBIN,TOTAL 1.3 MG/DL (0.2-1.0); BLOOD UREA NITROGEN 3 MG/DL (7-18); CALCIUM LEVEL 9.1 MG/DL (8.5-10.1); CARBON DIOXIDE LEVEL 37 MEQ/L (21-32); CHLORIDE LEVEL 82 MEQ/L (98-107); CREATININE FOR GFR 0.75 MG/DL (0.55-1.30); ETHYL ALCOHOL (ETHANOL) < 0.003 % (0.000-0.010); GLOMERULAR FILTRATION RATE > 60.0 (>60); GLUCOSE, FASTING 112 MG/DL (70-100); MAGNESIUM LEVEL 1.7 MG/DL (1.8-2.4); POTASSIUM SERUM 2.1 MEQ/L (3.5-5.1); SALICYLATE LEVEL < 1.7 MG/DL (5.0-30.0); SODIUM LEVEL 127 MEQ/L (136-145); TOTAL PROTEIN 7.6 GM/DL (6.4-8.2)
[2022-01-12 12:10] LABS: HCG, SERUM QUALITATIVE NEGATIVE (NEGATIVE)
[2022-01-12] MEDS ORDERED: POTASSIUM CHLORIDE 10MEQ SR TABLET PO ONE ×2 (12:10→16:55)
[2022-01-12] MEDS ORDERED: KCL 10MEQ/100ML SWI (KRUN) 10 MEQ in IV 1 EA IV ONE ×2 (12:10→16:55)
[2022-01-12] MEDS ORDERED: METOCLOPRAMIDE INJ 10MG/2ML VIAL (J2765 PER 1) IV ONE (12:30)
[2022-01-12 13:11] LABS: RSV AMPLIFICATION NEGATIVE (NEGATIVE)
[2022-01-12 13:43] LABS: URINE PREG TEST NEGATIVE (NEGATIVE)
[2022-01-12 13:46] LABS: OSMOLALITY URINE 95 MOSM/KG (50-1400)
[2022-01-12 14:04] LABS: CREATININE,RANDOM URINE 40.7 MG/DL; POTASSIUM RANDOM URINE 6.1 MEQ/L; SODIUM,RANDOM URINE 16 MEQ/L
[2022-01-12 14:04] LABS: AMPHETAMINES LEVEL URINE NEGATIVE (NEGATIVE); BARBITURATES URINE NEGATIVE (NEGATIVE); BENZODIAZEPINES URINE NEGATIVE (NEGATIVE); CANNABINOIDS URINE POSITIVE (NEGATIVE); COCAINE METABOLITE URINE NEGATIVE (NEGATIVE); METHADONE URINE NEGATIVE (NEGATIVE); OPIATES URINE NEGATIVE (NEGATIVE); PHENCYCLIDINE URINE NEGATIVE (NEGATIVE)
[2022-01-12 14:23] LABS: VENOUS BASE EXCESS 7.9 (-2.0-2.0); VENOUS HCO3 29.8 MEQ/L (23.0-27.0); VENOUS O2 SATURATION 98.6 % (60.0-80.0); VENOUS PARTIAL PRESSURE CO2 32.6 mmHg (38.0-50.0); VENOUS PARTIAL PRESSURE O2 144.9 mmHg (30.0-50.0); VENOUS PH 7.579 UNITS (7.330-7.430); VENOUS STANDARD HCO3 31.7 MEQ/L; VENOUS TOTAL CO2 30.8 MEQ/L (24.0-28.0)
[2022-01-12] MEDS ORDERED: IBUP-1730 PO (14:34)
[2022-01-12] MEDS ORDERED: OMEP-173 PO (14:34)
[2022-01-12] MEDS ORDERED: LORazepam 2 MG TAB PO PRN (14:35)
[2022-01-12] MEDS ORDERED: HOME MED LIST COMPLETE! XX SCH (14:40)
[2022-01-12] MEDS: NICOTINE 14 MG/24 HR TRANSDERMAL TD SCH (15:55)
[2022-01-12] MEDS ORDERED: LORazepam 2 MG/ML VIAL IV STA ×3 (16:17→17:45)
[2022-01-12] MEDS: OXAZEPAM 15MG CAP PO SCH (16:27)
[2022-01-12 16:52] LABS: BLOOD UREA NITROGEN 3 MG/DL (7-18); CARBON DIOXIDE LEVEL 34 MEQ/L (21-32); CHLORIDE LEVEL 92 MEQ/L (98-107); CREATININE FOR GFR 0.73 MG/DL (0.55-1.30); GLOMERULAR FILTRATION RATE > 60.0 (>60); GLUCOSE, FASTING 113 MG/DL (70-100); POTASSIUM SERUM 2.4 MEQ/L (3.5-5.1); SODIUM LEVEL 134 MEQ/L (136-145)
[2022-01-12] MEDS ORDERED: dexmedeTOMidine 200 MCG in IV 1 EA IV ONE (17:55)
[2022-01-12] MEDS: SUCRALFATE SUSP 1GM/10ML UD PO SCH ×2 (18:00→21:26)
[2022-01-12] MEDS ORDERED: diazePAM 10MG/2ML SYRINGE (J3360 PER 5MG) IV STA (18:40)
[2022-01-12] MEDS ORDERED: diazePAM 10MG/2ML SYRINGE (J3360 PER 5MG) As Ordered ONE (18:40)
[2022-01-12] MEDS ORDERED: NOREPINEPHRINE 4 MG/4 ML AMP As Ordered ONE (18:45)
[2022-01-12] MEDS ORDERED: MIDAZOLAM 5MG/ML 1ML VIAL (J2250 PER 1MG) As Ordered ONE (18:47)
[2022-01-12] MEDS ORDERED: ETOMIDATE INJ 20MG/10ML VIAL As Ordered ONE (18:47)
[2022-01-12] MEDS ORDERED: SUCCINYLCHOLINE INJ 200 MG/10 ML VIAL (J0330) As Ordered ONE (18:48)
[2022-01-12] MEDS ORDERED: SUCCINYLCHOLINE INJ 200 MG/10 ML VIAL (J0330) IV ONE (18:50)
[2022-01-12] MEDS ORDERED: ETOMIDATE INJ 20MG/10ML VIAL IV ONE (18:50)
[2022-01-12] MEDS ORDERED: MIDAZOLAM 5MG/ML 1ML VIAL (J2250 PER 1MG) IV ONE (18:50)
[2022-01-12] MEDS ORDERED: REFRIGERATOR IV KEYS XX PRN (18:55)
[2022-01-12] MEDS ORDERED: MIDAZOLAM INJ 2MG/2ML VIAL (J2250 PER 1MG) As Ordered ONE (19:11)
[2022-01-12] MEDS ORDERED: MIDAZOLAM INJ 2MG/2ML VIAL (J2250 PER 1MG) IV STA (19:12)
[2022-01-12] MEDS: MIDAZOLAM HCL 100 MG in D5W 80 ML IV SCH (19:17)
[2022-01-12] MEDS ORDERED: LR 1,000 ML IV SCH (19:20)
[2022-01-12] MEDS: MIDAZOLAM INJ 2MG/2ML VIAL (J2250 PER 1MG) IV PRN ×7 (19:39→23:00)
[2022-01-12 20:18] LABS: BLOOD UREA NITROGEN 3 MG/DL (7-18); CALCIUM LEVEL 8.6 MG/DL (8.5-10.1); CARBON DIOXIDE LEVEL 30 MEQ/L (21-32); CHLORIDE LEVEL 94 MEQ/L (98-107); CREATININE FOR GFR 0.68 MG/DL (0.55-1.30); GLOMERULAR FILTRATION RATE > 60.0 (>60); GLUCOSE, FASTING 134 MG/DL (70-100); POTASSIUM SERUM 2.6 MEQ/L (3.5-5.1); SODIUM LEVEL 134 MEQ/L (136-145)
[2022-01-12] MEDS ORDERED: IPRATROPIUM 0.5MG/ALBUTEROL 2.5MG INH SOL UD 3ML (DUONEB) NEB PRN (20:20)
[2022-01-12 20:23] LABS: APPEARANCE, URINE HAZY (CLEAR); BACTERIA, URINE AUTO NEGATIVE (NEGATIVE); BILIRUBIN, URINE AUTO NEGATIVE (NEGATIVE); BLOOD, URINE BLOOD NEGATIVE (NEGATIVE); COLOR, URINE YELLOW (YELLOW); GLUCOSE, URINE (UA) AUTO NEGATIVE (NEGATIVE); KETONE, URINE AUTO NEGATIVE (NEGATIVE); LEUKOCYTE ESTERASE, URINE AUTO 1+ (NEGATIVE); MUCUS, URINE SMALL (NEGATIVE); NITRITE, URINE AUTO NEGATIVE (NEGATIVE); PROTEIN, URINE AUTO NEGATIVE (NEGATIVE); RBC, URINE AUTO 1 /HPF (0-3); SPECIFIC GRAVITY URINE AUTO 1.005 (1.002-1.035); SQUAMOUS EPITHELIAL CELL UR AU 2 /HPF (0-6); WBC, URINE AUTO 5 /HPF (0-3)
[2022-01-12] MEDS ORDERED: POTASSIUM CHLORIDE 10MEQ SR TABLET PO SCH (21:00)
[2022-01-12] MEDS ORDERED: PROPOFOL 1,000 MG/100 ML VIAL As Ordered ONE (21:06)
[2022-01-12] MEDS: propofoL 1,000 MG in IV 1 EA IV SCH (21:18)
[2022-01-12] MEDS: KCL 10MEQ/100ML SWI (KRUN) 10 MEQ in IV 1 EA IV SCH ×3 (21:25→23:45)
[2022-01-12] MEDS: IPRATROPIUM 0.5MG/ALBUTEROL 2.5MG INH SOL UD 3ML (DUONEB) NEB SCH (23:38)
[2022-01-13] VITALS (72 sets, daily range): BP systolic 97–197; BP diastolic 69–136
[2022-01-13] MEDS: MIDAZOLAM INJ 2MG/2ML VIAL (J2250 PER 1MG) IV PRN ×15 (00:06→23:50)
[2022-01-13] MEDS: KCL 10MEQ/100ML SWI (KRUN) 10 MEQ in IV 1 EA IV SCH ×5 (00:51→07:44)
[2022-01-13] MEDS: OXAZEPAM 15MG CAP PO SCH ×4 (00:53→17:11)
[2022-01-13 02:01] LABS: INR 0.99; PROTHROMBIN TIME 13.5 SECONDS (12.7-14.5)
[2022-01-13 02:16] LABS: BLOOD UREA NITROGEN 3 MG/DL (7-18); CALCIUM LEVEL 8.5 MG/DL (8.5-10.1); CARBON DIOXIDE LEVEL 33 MEQ/L (21-32); CHLORIDE LEVEL 98 MEQ/L (98-107); CREATININE FOR GFR 0.67 MG/DL (0.55-1.30); GLOMERULAR FILTRATION RATE > 60.0 (>60); GLUCOSE, FASTING 104 MG/DL (70-100); POTASSIUM SERUM 2.7 MEQ/L (3.5-5.1); SODIUM LEVEL 138 MEQ/L (136-145)
[2022-01-13] MEDS ORDERED: D5W 1000ML IV ONE (02:55)
[2022-01-13] MEDS ORDERED: POTASSIUM CHLORIDE 10% LIQ 20 MEQ/15 ML UDC PO ONE ×3 (03:15→16:30)
[2022-01-13] MEDS: MAG SULF 1GM/100ML (MAG RUN) 1 GM in IV 1 EA IV SCH ×2 (03:34→04:52)
[2022-01-13] MEDS: propofoL 1,000 MG in IV 1 EA IV SCH ×4 (03:57→19:44)
[2022-01-13] MEDS: IPRATROPIUM 0.5MG/ALBUTEROL 2.5MG INH SOL UD 3ML (DUONEB) NEB SCH ×5 (04:09→19:34)
[2022-01-13] MEDS: D5W 1,000 ML IV SCH ×2 (04:25→08:32)
[2022-01-13] MEDS: MIDAZOLAM HCL 100 MG in D5W 80 ML IV SCH ×2 (04:36→14:31)
[2022-01-13 06:05] LABS: ABG BASE EXCESS 8.1 (-2.0-2.0); ABG HCO3 30.7 MEQ/L (22.0-26.0); ABG O2 SATURATION 98.6 % (95.0-99.0); ABG PARTIAL PRESSURE CO2 35.1 mmHg (35.0-45.0); ABG PARTIAL PRESSURE O2 144.6 mmHg (75.0-100.0); ABG TOTAL CO2 31.7 MEQ/L (22.0-29.0); ABG pH (ARTERIAL) 7.559 UNITS (7.350-7.450)
[2022-01-13 06:53] LABS: HEMOGLOBIN 11.4 g/dl (12.0-15.5); MEAN CORPUSCULAR HEMOGLOBIN 35.8 pg (27.0-33.0); MEAN CORPUSCULAR HGB CONC 35.6 g/dl (32.0-36.5); MEAN CORPUSCULAR VOLUME 100.6 fl (80.0-96.0); PLATELET COUNT, AUTOMATED 102 10^3/uL (150-450); RED BLOOD COUNT 3.18 10^6/uL (4.00-5.40); WHITE BLOOD COUNT 8.6 10^3/uL (4.0-10.0)
[2022-01-13 07:15] LABS: BLOOD UREA NITROGEN 2 MG/DL (7-18); CARBON DIOXIDE LEVEL 30 MEQ/L (21-32); CHLORIDE LEVEL 100 MEQ/L (98-107); CREATININE FOR GFR 0.72 MG/DL (0.55-1.30); GLOMERULAR FILTRATION RATE > 60.0 (>60); GLUCOSE, FASTING 138 MG/DL (70-100); MAGNESIUM LEVEL 3.3 MG/DL (1.8-2.4); POTASSIUM SERUM 2.5 MEQ/L (3.5-5.1); SODIUM LEVEL 138 MEQ/L (136-145)
[2022-01-13 08:36] LABS: ALBUMIN 2.9 GM/DL (3.2-5.2); ALT/SGPT 45 U/L (12-78); BILIRUBIN,DIRECT 0.6 MG/DL (0.0-0.2); BILIRUBIN,TOTAL 1.2 MG/DL (0.2-1.0); TOTAL PROTEIN 6.2 GM/DL (6.4-8.2)
[2022-01-13] MEDS: PANTOPRAZOLE 40MG VIAL IV SCH (08:36)
[2022-01-13] MEDS: POTASSIUM CHLORIDE 10% LIQ 20 MEQ/15 ML UDC PO SCH ×2 (08:36→21:33)
[2022-01-13] MEDS ORDERED: D5W 1,000 ML IV SCH (08:45)
[2022-01-13] MEDS ORDERED: THIAMINE 200MG 2ML VIAL IV SCH (09:00)
[2022-01-13] MEDS ORDERED: ENOXAPARIN 30MG/0.3ML SYRINGE (J1650 PER 10MG) SC SCH (09:00)
[2022-01-13] MEDS: NICOTINE 14 MG/24 HR TRANSDERMAL TD SCH (09:00)
[2022-01-13] MEDS ORDERED: levETIRAcetam INJection 750 MG in D5W 100 ML IV ONE ×2 (09:00→09:45)
[2022-01-13] MEDS ORDERED: FERROUS SULFATE 325MG TAB PO SCH (09:00)
[2022-01-13] MEDS: levETIRAcetam INJection 750 MG in D5W 100 ML IV SCH ×2 (09:46→21:33)
[2022-01-13] MEDS: FOLIC ACID 1 MG in NS 50 ML IV SCH (10:14)
[2022-01-13] MEDS: CHLORHEXIDINE GLUCONATE 0.12 % 15ML UDC (PERIDEX ORAL RINSE) MT SCH ×2 (11:56→21:32)
[2022-01-13] MEDS ORDERED: MIDAZOLAM INJ 2MG/2ML VIAL (J2250 PER 1MG) IV STA (14:29)
[2022-01-13 14:58] LABS: BLOOD UREA NITROGEN 2 MG/DL (7-18); CALCIUM LEVEL 8.1 MG/DL (8.5-10.1); CARBON DIOXIDE LEVEL 31 MEQ/L (21-32); CHLORIDE LEVEL 103 MEQ/L (98-107); CREATININE FOR GFR 0.79 MG/DL (0.55-1.30); GLOMERULAR FILTRATION RATE > 60.0 (>60); GLUCOSE, FASTING 114 MG/DL (70-100); POTASSIUM SERUM 3.5 MEQ/L (3.5-5.1); SODIUM LEVEL 140 MEQ/L (136-145)
[2022-01-13] MEDS ORDERED: DESMOPRESSIN 4 MCG/ML INJ VIAL/AMP (J2597) SQ ONE (16:00)
[2022-01-13] MEDS ORDERED: POTASSIUM PHOSPHATE INJ 30 MMOL in D5W 500 ML IV ONE (17:00)
[2022-01-13 22:39] LABS: BLOOD UREA NITROGEN 2 MG/DL (7-18); CALCIUM LEVEL 7.4 MG/DL (8.5-10.1); CARBON DIOXIDE LEVEL 28 MEQ/L (21-32); CHLORIDE LEVEL 101 MEQ/L (98-107); CREATININE FOR GFR 0.57 MG/DL (0.55-1.30); GLOMERULAR FILTRATION RATE > 60.0 (>60); GLUCOSE, FASTING 149 MG/DL (70-100); POTASSIUM SERUM 4.8 MEQ/L (3.5-5.1); SODIUM LEVEL 136 MEQ/L (136-145)
[2022-01-14] VITALS (80 sets, daily range): BP systolic 76–158; BP diastolic 50–99
[2022-01-14] MEDS: D5W 1,000 ML IV SCH ×2 (00:10→07:40)
[2022-01-14] MEDS: propofoL 1,000 MG in IV 1 EA IV SCH ×7 (00:10→21:34)
[2022-01-14] MEDS: OXAZEPAM 15MG CAP PO SCH ×4 (00:11→17:17)
[2022-01-14] MEDS: IPRATROPIUM 0.5MG/ALBUTEROL 2.5MG INH SOL UD 3ML (DUONEB) NEB SCH ×6 (01:04→19:44)
[2022-01-14] MEDS: MIDAZOLAM HCL 100 MG in D5W 80 ML IV SCH ×2 (01:38→19:17)
[2022-01-14] MEDS: MIDAZOLAM INJ 2MG/2ML VIAL (J2250 PER 1MG) IV PRN ×7 (01:39→23:41)
[2022-01-14 02:56] LABS: BLOOD UREA NITROGEN 2 MG/DL (7-18); CALCIUM LEVEL 7.8 MG/DL (8.5-10.1); CARBON DIOXIDE LEVEL 27 MEQ/L (21-32); CHLORIDE LEVEL 102 MEQ/L (98-107); CREATININE FOR GFR 0.54 MG/DL (0.55-1.30); GLOMERULAR FILTRATION RATE > 60.0 (>60); GLUCOSE, FASTING 104 MG/DL (70-100); SODIUM LEVEL 136 MEQ/L (136-145)
[2022-01-14 06:44] LABS: ABG BASE EXCESS -0.5 (-2.0-2.0); ABG HCO3 22.6 MEQ/L (22.0-26.0); ABG O2 SATURATION 98.6 % (95.0-99.0); ABG PARTIAL PRESSURE CO2 31.9 mmHg (35.0-45.0); ABG PARTIAL PRESSURE O2 133.2 mmHg (75.0-100.0); ABG STANDARD HCO3 24.1 MEQ/L (22.0-26.0); ABG TOTAL CO2 23.6 MEQ/L (22.0-29.0); ABG pH (ARTERIAL) 7.468 UNITS (7.350-7.450)
[2022-01-14 06:49] LABS: HEMATOCRIT 29.7 % (36.0-47.0); HEMOGLOBIN 10.3 g/dl (12.0-15.5); MEAN CORPUSCULAR HEMOGLOBIN 36.1 pg (27.0-33.0); MEAN CORPUSCULAR HGB CONC 34.7 g/dl (32.0-36.5); MEAN CORPUSCULAR VOLUME 104.2 fl (80.0-96.0); PLATELET COUNT, AUTOMATED 119 10^3/uL (150-450); RED BLOOD COUNT 2.85 10^6/uL (4.00-5.40)
[2022-01-14 07:10] LABS: BLOOD UREA NITROGEN 2 MG/DL (7-18); CALCIUM LEVEL 7.7 MG/DL (8.5-10.1); CARBON DIOXIDE LEVEL 25 MEQ/L (21-32); CHLORIDE LEVEL 99 MEQ/L (98-107); CREATININE FOR GFR 0.49 MG/DL (0.55-1.30); GLOMERULAR FILTRATION RATE > 60.0 (>60); GLUCOSE, FASTING 111 MG/DL (70-100); MAGNESIUM LEVEL 1.9 MG/DL (1.8-2.4); POTASSIUM SERUM 5.2 MEQ/L (3.5-5.1); SODIUM LEVEL 132 MEQ/L (136-145)
[2022-01-14] MEDS ORDERED: THIAMINE 200MG 2ML VIAL IV SCH (08:20)
[2022-01-14] MEDS: CHLORHEXIDINE GLUCONATE 0.12 % 15ML UDC (PERIDEX ORAL RINSE) MT SCH ×2 (09:29→22:32)
[2022-01-14] MEDS: PANTOPRAZOLE 40MG VIAL IV SCH (09:29)
[2022-01-14] MEDS: levETIRAcetam INJection 750 MG in D5W 100 ML IV SCH ×2 (09:29→22:31)
[2022-01-14] MEDS: FOLIC ACID 1 MG in NS 50 ML IV SCH (09:30)
[2022-01-14] MEDS: NICOTINE 14 MG/24 HR TRANSDERMAL TD SCH (09:31)
[2022-01-14] MEDS: THIAMINE INJection 500 MG in NS 100 ML IV SCH ×2 (10:16→19:15)
[2022-01-14] MEDS ORDERED: MAG SULF 1GM/100ML (MAG RUN) 1 GM in IV 1 EA IV ONE (10:30)
[2022-01-14] MEDS ORDERED: MIRALAX *UNIT DOSE* 17GM PACKET PO PRN (10:30)
[2022-01-14 11:09] LABS: PHOSPHORUS LEVEL 4.3 MG/DL (2.5-4.9)
[2022-01-14] MEDS: MAG SULF 1GM/100ML (MAG RUN) 1 GM in IV 1 EA IV SCH ×2 (11:11→12:41)
[2022-01-14 11:27] LABS: HEPATITIS B CORE ANTIBODY IGM NEGATIVE (NEGATIVE); HEPATITIS B SURFACE ANTIGEN NEGATIVE (NEGATIVE)
[2022-01-14 11:28] LABS: HEPATITIS C VIRUS ABY INDEX 1.2 INDEX (<0.8)
[2022-01-14] MEDS: dexmedeTOMidine 200 MCG in IV 1 EA IV SCH (12:06)
[2022-01-14] MEDS: fentaNYL 100 MCG/2 ML INJECTION IV PRN ×2 (12:30→20:34)
[2022-01-14] MEDS: ENOXAPARIN 30MG/0.3ML SYRINGE (J1650 PER 10MG) SC SCH (12:40)
[2022-01-14 13:34] LABS: BLOOD UREA NITROGEN 2 MG/DL (7-18); CALCIUM LEVEL 8.3 MG/DL (8.5-10.1); CARBON DIOXIDE LEVEL 26 MEQ/L (21-32); CHLORIDE LEVEL 99 MEQ/L (98-107); CREATININE FOR GFR 0.56 MG/DL (0.55-1.30); GLOMERULAR FILTRATION RATE > 60.0 (>60); GLUCOSE, FASTING 111 MG/DL (70-100); POTASSIUM SERUM 4.4 MEQ/L (3.5-5.1); SODIUM LEVEL 134 MEQ/L (136-145)
[2022-01-14 18:45] LABS: BLOOD UREA NITROGEN 2 MG/DL (7-18); CALCIUM LEVEL 8.5 MG/DL (8.5-10.1); CARBON DIOXIDE LEVEL 28 MEQ/L (21-32); CHLORIDE LEVEL 105 MEQ/L (98-107); CREATININE FOR GFR 0.56 MG/DL (0.55-1.30); GLOMERULAR FILTRATION RATE > 60.0 (>60); GLUCOSE, FASTING 111 MG/DL (70-100); POTASSIUM SERUM 4.7 MEQ/L (3.5-5.1); SODIUM LEVEL 139 MEQ/L (136-145)
[2022-01-15] VITALS (49 sets, daily range): BP systolic 85–137; BP diastolic 51–91
[2022-01-15] MEDS: OXAZEPAM 15MG CAP PO SCH ×4 (00:14→21:11)
[2022-01-15] MEDS: IPRATROPIUM 0.5MG/ALBUTEROL 2.5MG INH SOL UD 3ML (DUONEB) NEB SCH ×6 (00:49→19:40)
[2022-01-15] MEDS: dexmedeTOMidine 200 MCG in IV 1 EA IV SCH (01:14)
[2022-01-15] MEDS: MIDAZOLAM INJ 2MG/2ML VIAL (J2250 PER 1MG) IV PRN ×5 (01:18→21:20)
[2022-01-15 03:24] LABS: BASO % 0.3 % (0.0-1.0); EOS # 0.1 10^3/uL (0.0-0.5); EOS % 0.8 % (0.0-3.0); HEMATOCRIT 32.7 % (36.0-47.0); HEMOGLOBIN 11.2 g/dl (12.0-15.5); LYMPH # 0.3 10^3/uL (1.5-5.0); LYMPH % 2.4 % (24.0-44.0); MEAN CORPUSCULAR HEMOGLOBIN 35.7 pg (27.0-33.0); MEAN CORPUSCULAR HGB CONC 34.3 g/dl (32.0-36.5); MEAN CORPUSCULAR VOLUME 104.1 fl (80.0-96.0); MONO # 1.3 10^3/uL (0.0-0.8); MONO % 10.7 % (2.0-8.0); NEUTROPHILS % 85.4 % (36.0-66.0); PLATELET COUNT, AUTOMATED 182 10^3/uL (150-450); RED BLOOD COUNT 3.14 10^6/uL (4.00-5.40); WHITE BLOOD COUNT 11.7 10^3/uL (4.0-10.0)
[2022-01-15] MEDS ORDERED: ACETAMINOPHEN *IV* 1,000 MG in IV 1 EA IV ONE (03:30)
[2022-01-15 03:36] LABS: APPEARANCE, URINE CLEAR (CLEAR); BACTERIA, URINE AUTO NEGATIVE (NEGATIVE); BILIRUBIN, URINE AUTO NEGATIVE (NEGATIVE); BLOOD, URINE BLOOD 2+ (NEGATIVE); COLOR, URINE AMBER (YELLOW); GLUCOSE, URINE (UA) AUTO NEGATIVE (NEGATIVE); KETONE, URINE AUTO NEGATIVE (NEGATIVE); LEUKOCYTE ESTERASE, URINE AUTO TRACE (NEGATIVE); NITRITE, URINE AUTO NEGATIVE (NEGATIVE); PROTEIN, URINE AUTO 1+ mg/dL (NEGATIVE); RBC, URINE AUTO 133 /HPF (0-3); SPECIFIC GRAVITY URINE AUTO 1.014 (1.002-1.035); SQUAMOUS EPITHELIAL CELL UR AU 1 /HPF (0-6); WBC, URINE AUTO 11 /HPF (0-3)
[2022-01-15 03:40] LABS: C REACTIVE PROTEIN QUANTITATIV 7.83 MG/DL (0.00-0.30)
[2022-01-15 03:44] LABS: ALBUMIN 2.6 GM/DL (3.2-5.2); ALT/SGPT 55 U/L (12-78); BILIRUBIN,TOTAL 1.7 MG/DL (0.2-1.0); BLOOD UREA NITROGEN 3 MG/DL (7-18); CALCIUM LEVEL 8.4 MG/DL (8.5-10.1); CARBON DIOXIDE LEVEL 27 MEQ/L (21-32); CHLORIDE LEVEL 101 MEQ/L (98-107); CREATININE FOR GFR 0.62 MG/DL (0.55-1.30); GLOMERULAR FILTRATION RATE > 60.0 (>60); GLUCOSE, FASTING 133 MG/DL (70-100); POTASSIUM SERUM 4.5 MEQ/L (3.5-5.1); SODIUM LEVEL 134 MEQ/L (136-145); TOTAL PROTEIN 5.9 GM/DL (6.4-8.2)
[2022-01-15] MEDS: fentaNYL 100 MCG/2 ML INJECTION IV PRN ×2 (03:44→21:42)
[2022-01-15] MEDS: propofoL 1,000 MG in IV 1 EA IV SCH ×4 (03:47→22:50)
[2022-01-15] MEDS ORDERED: ACETAMINOPHEN *IV* 650 MG in IV 1 EA IV ONE (03:50)
[2022-01-15] MEDS: THIAMINE INJection 500 MG in NS 100 ML IV SCH ×3 (04:23→22:48)
[2022-01-15 05:25] LABS: HEMATOCRIT 33.3 % (36.0-47.0); HEMOGLOBIN 11.2 g/dl (12.0-15.5); MEAN CORPUSCULAR HEMOGLOBIN 35.7 pg (27.0-33.0); MEAN CORPUSCULAR HGB CONC 33.6 g/dl (32.0-36.5); MEAN CORPUSCULAR VOLUME 106.1 fl (80.0-96.0); PLATELET COUNT, AUTOMATED 176 10^3/uL (150-450); RED BLOOD COUNT 3.14 10^6/uL (4.00-5.40); WHITE BLOOD COUNT 12.1 10^3/uL (4.0-10.0)
[2022-01-15 05:43] LABS: BLOOD UREA NITROGEN 4 MG/DL (7-18); CALCIUM LEVEL 8.2 MG/DL (8.5-10.1); CARBON DIOXIDE LEVEL 29 MEQ/L (21-32); CHLORIDE LEVEL 100 MEQ/L (98-107); CREATININE FOR GFR 0.71 MG/DL (0.55-1.30); GLOMERULAR FILTRATION RATE > 60.0 (>60); GLUCOSE, FASTING 113 MG/DL (70-100); MAGNESIUM LEVEL 2.3 MG/DL (1.8-2.4); POTASSIUM SERUM 4.3 MEQ/L (3.5-5.1); SODIUM LEVEL 136 MEQ/L (136-145)
[2022-01-15] MEDS: FOLIC ACID 1 MG in NS 50 ML IV SCH (08:58)
[2022-01-15] MEDS: PANTOPRAZOLE 40MG VIAL IV SCH (08:58)
[2022-01-15] MEDS: ENOXAPARIN 30MG/0.3ML SYRINGE (J1650 PER 10MG) SC SCH (08:58)
[2022-01-15] MEDS: CHLORHEXIDINE GLUCONATE 0.12 % 15ML UDC (PERIDEX ORAL RINSE) MT SCH ×2 (08:58→21:11)
[2022-01-15] MEDS: NICOTINE 14 MG/24 HR TRANSDERMAL TD SCH (09:07)
[2022-01-15] MEDS: levETIRAcetam INJection 750 MG in D5W 100 ML IV SCH ×2 (09:42→22:49)
[2022-01-15] MEDS ORDERED: PIPERACILLIN/TAZOBACTAM SOD 3.375 GM in D5W MINI-BAG PLUS 50 ML IV SCH (11:10)
[2022-01-15 12:29] LABS: PHOSPHORUS LEVEL 5.3 MG/DL (2.5-4.9)
[2022-01-15] MEDS: PIPERACILLIN/TAZOBACTAM SOD 4.5 GM in D5W MINI-BAG PLUS 50 ML IV SCH ×2 (12:41→21:10)
[2022-01-15] MEDS ORDERED: VANCOMYCIN HCL 1,000 MG, VIAL MATE ADAPTER 1 EACH in NS 250 ML IV ONE (13:00)
[2022-01-15] MEDS: MIDAZOLAM HCL 100 MG in D5W 80 ML IV SCH (13:50)
[2022-01-15] MEDS: ACETAMINOPHEN 325 MG/10.15 ML UDC GT PRN (15:50)
[2022-01-15] MEDS: VANCOMYCIN HCL 1,000 MG, VIAL MATE ADAPTER 1 EACH in NS 250 ML IV SCH (21:24)
[2022-01-16] VITALS (35 sets, daily range): BP systolic 83–162; BP diastolic 50–110
[2022-01-16] MEDS: IPRATROPIUM 0.5MG/ALBUTEROL 2.5MG INH SOL UD 3ML (DUONEB) NEB SCH ×6 (00:04→19:47)
[2022-01-16] MEDS: MIDAZOLAM INJ 2MG/2ML VIAL (J2250 PER 1MG) IV PRN ×2 (00:31→03:29)
[2022-01-16] MEDS: fentaNYL 100 MCG/2 ML INJECTION IV PRN (00:31)
[2022-01-16] MEDS: OXAZEPAM 15MG CAP PO SCH ×2 (00:51→05:53)
[2022-01-16] MEDS: dexmedeTOMidine 200 MCG in IV 1 EA IV SCH ×4 (00:51→23:17)
[2022-01-16] MEDS: PIPERACILLIN/TAZOBACTAM SOD 4.5 GM in D5W MINI-BAG PLUS 50 ML IV SCH ×5 (00:52→23:18)
[2022-01-16] MEDS: THIAMINE INJection 500 MG in NS 100 ML IV SCH ×3 (03:11→20:26)
[2022-01-16 05:07] LABS: HEMATOCRIT 31.6 % (36.0-47.0); HEMOGLOBIN 10.7 g/dl (12.0-15.5); MEAN CORPUSCULAR HEMOGLOBIN 35.4 pg (27.0-33.0); MEAN CORPUSCULAR HGB CONC 33.9 g/dl (32.0-36.5); MEAN CORPUSCULAR VOLUME 104.6 fl (80.0-96.0); PLATELET COUNT, AUTOMATED 242 10^3/uL (150-450); RED BLOOD COUNT 3.02 10^6/uL (4.00-5.40); WHITE BLOOD COUNT 13.5 10^3/uL (4.0-10.0)
[2022-01-16 05:41] LABS: BLOOD UREA NITROGEN 5 MG/DL (7-18); CALCIUM LEVEL 8.1 MG/DL (8.5-10.1); CARBON DIOXIDE LEVEL 26 MEQ/L (21-32); CHLORIDE LEVEL 104 MEQ/L (98-107); CREATININE FOR GFR 0.62 MG/DL (0.55-1.30); GLOMERULAR FILTRATION RATE > 60.0 (>60); GLUCOSE, FASTING 109 MG/DL (70-100); MAGNESIUM LEVEL 2.1 MG/DL (1.8-2.4); POTASSIUM SERUM 4.1 MEQ/L (3.5-5.1); SODIUM LEVEL 137 MEQ/L (136-145)
[2022-01-16] MEDS: VANCOMYCIN HCL 1,000 MG, VIAL MATE ADAPTER 1 EACH in NS 250 ML IV SCH ×2 (07:35→18:35)
[2022-01-16 08:30] LABS: ALBUMIN 2.3 GM/DL (3.2-5.2); ALT/SGPT 39 U/L (12-78); BILIRUBIN,TOTAL 1.9 MG/DL (0.2-1.0); TOTAL PROTEIN 5.4 GM/DL (6.4-8.2)
[2022-01-16] MEDS: CHLORHEXIDINE GLUCONATE 0.12 % 15ML UDC (PERIDEX ORAL RINSE) MT SCH (08:55)
[2022-01-16] MEDS: FOLIC ACID 1 MG in NS 50 ML IV SCH (08:55)
[2022-01-16] MEDS: NICOTINE 14 MG/24 HR TRANSDERMAL TD SCH (08:55)
[2022-01-16] MEDS: PANTOPRAZOLE 40MG VIAL IV SCH (08:56)
[2022-01-16] MEDS: ENOXAPARIN 30MG/0.3ML SYRINGE (J1650 PER 10MG) SC SCH (08:59)
[2022-01-16] MEDS: MIDAZOLAM HCL 100 MG in D5W 80 ML IV SCH ×2 (08:59→11:00)
[2022-01-16] MEDS ORDERED: BISACODYL 10 MG SUPP PR PRN (09:10)
[2022-01-16] MEDS: levETIRAcetam INJection 750 MG in D5W 100 ML IV SCH ×2 (09:24→20:26)
[2022-01-16] MEDS: METOCLOPRAMIDE INJ 10MG/2ML VIAL (J2765 PER 1) IV SCH ×3 (09:25→20:45)
[2022-01-16] MEDS ORDERED: LR 1,000 ML IV SCH (10:30)
[2022-01-16] MEDS: diazePAM 10MG/2ML SYRINGE (J3360 PER 5MG) IV SCH ×2 (13:40→20:25)
[2022-01-17] VITALS (16 sets, daily range): BP systolic 113–151; BP diastolic 80–105
[2022-01-17] MEDS: IPRATROPIUM 0.5MG/ALBUTEROL 2.5MG INH SOL UD 3ML (DUONEB) NEB SCH ×6 (00:09→19:31)
[2022-01-17] MEDS: METOCLOPRAMIDE INJ 10MG/2ML VIAL (J2765 PER 1) IV SCH (02:35)
[2022-01-17] MEDS: THIAMINE INJection 500 MG in NS 100 ML IV SCH (03:10)
[2022-01-17] MEDS: diazePAM 10MG/2ML SYRINGE (J3360 PER 5MG) IV SCH (04:02)
[2022-01-17] MEDS: ACETAMINOPHEN 325 MG/10.15 ML UDC GT PRN (04:19)
[2022-01-17 04:43] LABS: HEMATOCRIT 31.4 % (36.0-47.0); HEMOGLOBIN 10.7 g/dl (12.0-15.5); MEAN CORPUSCULAR HEMOGLOBIN 35.1 pg (27.0-33.0); MEAN CORPUSCULAR HGB CONC 34.1 g/dl (32.0-36.5); PLATELET COUNT, AUTOMATED 307 10^3/uL (150-450); RED BLOOD COUNT 3.05 10^6/uL (4.00-5.40); WHITE BLOOD COUNT 9.8 10^3/uL (4.0-10.0)
[2022-01-17 04:48] LABS: BLOOD UREA NITROGEN 4 MG/DL (7-18); CALCIUM LEVEL 8.7 MG/DL (8.5-10.1); CARBON DIOXIDE LEVEL 26 MEQ/L (21-32); CHLORIDE LEVEL 104 MEQ/L (98-107); CREATININE FOR GFR 0.54 MG/DL (0.55-1.30); GLOMERULAR FILTRATION RATE > 60.0 (>60); GLUCOSE, FASTING 101 MG/DL (70-100); POTASSIUM SERUM 3.6 MEQ/L (3.5-5.1); SODIUM LEVEL 138 MEQ/L (136-145)
[2022-01-17] MEDS: PIPERACILLIN/TAZOBACTAM SOD 4.5 GM in D5W MINI-BAG PLUS 50 ML IV SCH (05:04)
[2022-01-17] MEDS: VANCOMYCIN HCL 1,000 MG, VIAL MATE ADAPTER 1 EACH in NS 250 ML IV SCH (06:11)
[2022-01-17] MEDS: dexmedeTOMidine 200 MCG in IV 1 EA IV SCH (06:32)
[2022-01-17] MEDS: MULTIVITAMINS/MINERALS THERAP 1 TAB PO SCH (08:44)
[2022-01-17] MEDS: NICOTINE 14 MG/24 HR TRANSDERMAL TD SCH (08:44)
[2022-01-17] MEDS: THIAMINE 100 MG TAB PO SCH ×2 (08:44→21:07)
[2022-01-17] MEDS: FOLIC ACID 1 MG TAB PO SCH (08:44)
[2022-01-17] MEDS: PANTOPRAZOLE 40MG VIAL IV SCH (08:45)
[2022-01-17] MEDS: ENOXAPARIN 30MG/0.3ML SYRINGE (J1650 PER 10MG) SC SCH (08:45)
[2022-01-17] MEDS: levETIRAcetam INJection 750 MG in D5W 100 ML IV SCH (08:45)
[2022-01-17] MEDS: diazePAM 5MG TABLET PO SCH ×2 (14:20→21:05)
[2022-01-17] MEDS: levETIRAcetam 250MG TABLET (KEPPRA) PO SCH (21:05)
[2022-01-17] MEDS: DOXYCYCLINE HYCLATE 100MG TABLET PO SCH (21:06)
[2022-01-18] VITALS: BP 133/89
[2022-01-18] MEDS: IPRATROPIUM 0.5MG/ALBUTEROL 2.5MG INH SOL UD 3ML (DUONEB) NEB SCH ×2 (02:02→03:45)
[2022-01-18 04:00] VITALS: BP 132/93
[2022-01-18] MEDS: diazePAM 5MG TABLET PO SCH ×3 (05:15→21:11)
[2022-01-18 07:46] VITALS: BP 126/85
[2022-01-18] MEDS: DOXYCYCLINE HYCLATE 100MG TABLET PO SCH ×2 (08:16→21:11)
[2022-01-18] MEDS: NICOTINE 14 MG/24 HR TRANSDERMAL TD SCH (08:16)
[2022-01-18] MEDS: FOLIC ACID 1 MG TAB PO SCH (08:17)
[2022-01-18] MEDS: levETIRAcetam 250MG TABLET (KEPPRA) PO SCH ×2 (08:17→21:11)
[2022-01-18] MEDS: MULTIVITAMINS/MINERALS THERAP 1 TAB PO SCH (08:17)
[2022-01-18] MEDS: ENOXAPARIN 30MG/0.3ML SYRINGE (J1650 PER 10MG) SC SCH (08:18)
[2022-01-18] MEDS: PANTOPRAZOLE 40MG TAB (PROTONIX) PO SCH (08:18)
[2022-01-18] MEDS: THIAMINE 100 MG TAB PO SCH ×2 (08:18→21:11)
[2022-01-18 12:00] VITALS: BP 120/86
[2022-01-18 17:05] VITALS: BP 125/75
[2022-01-18 20:00] VITALS: BP 112/68
[2022-01-18] MEDS ORDERED: NS 1,000 ML IV ONE (20:30)
[2022-01-18] MEDS ORDERED: LORazepam 2 MG TAB PO PRN (20:35)
[2022-01-18] MEDS: POTASSIUM CHLORIDE 10MEQ SR TABLET PO SCH (21:11)
[2022-01-19] VITALS: BP 132/86
[2022-01-19 04:00] VITALS: BP 129/59
[2022-01-19] MEDS: diazePAM 5MG TABLET PO SCH (06:18)
[2022-01-19 07:51] VITALS: BP 121/90
[2022-01-19 08:00] VITALS: BP 121/90
[2022-01-19 08:07] LABS: BASO # 0.1 10^3/uL (0.0-0.2); BASO % 0.7 % (0.0-1.0); EOS # 0.2 10^3/uL (0.0-0.5); EOS % 2.6 % (0.0-3.0); HEMATOCRIT 33.6 % (36.0-47.0); HEMOGLOBIN 11.4 g/dl (12.0-15.5); LYMPH # 1.4 10^3/uL (1.5-5.0); LYMPH % 18.6 % (24.0-44.0); MEAN CORPUSCULAR HEMOGLOBIN 35.3 pg (27.0-33.0); MEAN CORPUSCULAR HGB CONC 33.9 g/dl (32.0-36.5); MONO # 1.4 10^3/uL (0.0-0.8); MONO % 18.8 % (2.0-8.0); NEUTROPHILS # 4.4 10^3/uL (1.5-8.5); NEUTROPHILS % 57.9 % (36.0-66.0); PLATELET COUNT, AUTOMATED 469 10^3/uL (150-450); RED BLOOD COUNT 3.23 10^6/uL (4.00-5.40); WHITE BLOOD COUNT 7.6 10^3/uL (4.0-10.0)
[2022-01-19] MEDS: POTASSIUM CHLORIDE 10MEQ SR TABLET PO SCH (08:09)
[2022-01-19] MEDS: levETIRAcetam 250MG TABLET (KEPPRA) PO SCH (08:09)
[2022-01-19] MEDS: MULTIVITAMINS/MINERALS THERAP 1 TAB PO SCH (08:09)
[2022-01-19] MEDS: ENOXAPARIN 30MG/0.3ML SYRINGE (J1650 PER 10MG) SC SCH (08:10)
[2022-01-19] MEDS: PANTOPRAZOLE 40MG TAB (PROTONIX) PO SCH (08:10)
[2022-01-19] MEDS: THIAMINE 100 MG TAB PO SCH (08:10)
[2022-01-19] MEDS: DOXYCYCLINE HYCLATE 100MG TABLET PO SCH (08:10)
[2022-01-19] MEDS: FOLIC ACID 1 MG TAB PO SCH (08:10)
[2022-01-19] MEDS: NICOTINE 14 MG/24 HR TRANSDERMAL TD SCH (08:11)
[2022-01-19 08:29] LABS: BLOOD UREA NITROGEN 5 MG/DL (7-18); CALCIUM LEVEL 9.3 MG/DL (8.5-10.1); CARBON DIOXIDE LEVEL 29 MEQ/L (21-32); CHLORIDE LEVEL 107 MEQ/L (98-107); CREATININE FOR GFR 0.48 MG/DL (0.55-1.30); GLOMERULAR FILTRATION RATE > 60.0 (>60); GLUCOSE, FASTING 110 MG/DL (70-100); MAGNESIUM LEVEL 2.1 MG/DL (1.8-2.4); POTASSIUM SERUM 3.5 MEQ/L (3.5-5.1); SODIUM LEVEL 143 MEQ/L (136-145)
[2022-01-19] MEDS ORDERED: OXAZ10CA3 PO ×2 (09:59→11:34)
[2022-01-19] MEDS ORDERED: DOXY100T PO (09:59)
[2022-01-19] MEDS ORDERED: FOLI1TAB11 PO (09:59)
[2022-01-19] MEDS ORDERED: KEPP250T5 PO (09:59)
[2022-01-19] MEDS ORDERED: THIA100TA PO (09:59)
[2022-01-19] MEDS ORDERED: OMEP-173 PO (09:59)
[2022-01-19] MEDS ORDERED: VITMTA PO (09:59)
[2022-01-19] MEDS ORDERED: PANT20TA6 PO (11:36)
== END 2022-01-19 13:22 | disposition home or self-care (01) | DRG 775 ==
LOC: M ED 10:32 → EDBD 10:32 → EEVIPCON 12:47 → M ED INP 12:47 → ENRESERV 14:35 → M PCU 15:27 → M ICU 18:11 → M PCU 01-17 17:18
PROVIDERS: ADMIT Internal Medicine; ATTEND Internal Medicine Nephrology
PROC: 5A1945Z Respiratory Ventilation, 24-96 Consecutive Hours (ICD-10-PCS; principal; 2022-01-12)
PROC: 02HV33Z Insertion of Infusion Device into Superior Vena Cava, Percutaneous Approach (ICD-10-PCS; 2022-01-13)
DX: F10.232 Alcohol dependence with withdrawal with perceptual disturbance (principal); J96.90 Respiratory failure, unspecified, unspecified whether with hypoxia or hypercapnia; E43 Unspecified severe protein-calorie malnutrition; A41.9 Sepsis, unspecified organism; E87.3 Alkalosis; F10.231 Alcohol dependence with withdrawal delirium; D50.9 Iron deficiency anemia, unspecified; F17.200 Nicotine dependence, unspecified, uncomplicated; R56.9 Unspecified convulsions; K76.0 Fatty (change of) liver, not elsewhere classified; Z78.1 Physical restraint status; E55.9 Vitamin D deficiency, unspecified; E87.1 Hypo-osmolality and hyponatremia; E87.6 Hypokalemia; G43.909 Migraine, unspecified, not intractable, without status migrainosus; J40 Bronchitis, not specified as acute or chronic; K21.9 Gastro-esophageal reflux disease without esophagitis; Z68.1 Body mass index [BMI] 19.9 or less, adult; Z79.899 Other long term (current) drug therapy

== ENCOUNTER → 2022-02-01 | Outpatient (REF) | payer MEDICAID ==
[~2022-02-01] MED LIST changes: +DOXY100T PO; -FOLIC ACID 1 MG TAB PO SCH; +IBUP-1730 PO; +KEPP250T5 PO; -MULTIVITAMINS/MINERALS THERAP 1 TAB PO SCH; +OMEP-173 PO; -OMEPRAZOLE 20MG CAP PO SCH; +PANT20TA6 PO
== END ==
LOC: M SFHCADAM 09:01
PROVIDERS: ATTEND Physician Assistant Medical
DX: Z53.9 Procedure and treatment not carried out, unspecified reason (principal)

== ENCOUNTER → 2022-07-29 | Outpatient (CLI) | payer OTHER ==
[~2022-07-29] MED LIST changes: +GASTROGRAFIN SOLUTION 30ML As Ordered ONE; +ISOVUE-370 76% 100ML VIAL As Ordered ONE
[2022-07-29 16:57] LABS: BLOOD UREA NITROGEN < 5 MG/DL (9-23); CALCIUM LEVEL 8.8 MG/DL (8.5-10.1); CARBON DIOXIDE LEVEL 32 MMOL/L (20-31); CHLORIDE LEVEL 96 MMOL/L (98-107); CREATININE FOR GFR 0.52 MG/DL (0.55-1.30); GLOMERULAR FILTRATION RATE > 60.0 (>60); GLUCOSE, FASTING 117 MG/DL (60-100); POTASSIUM SERUM 3.3 MMOL/L (3.5-5.1); SODIUM LEVEL 139 MMOL/L (136-145)
== END ==
LOC: M RAD 13:13 → M LAB 13:13
PROVIDERS: ATTEND Physician Assistant
DX: R16.0 Hepatomegaly, not elsewhere classified (principal); K21.9 Gastro-esophageal reflux disease without esophagitis; R10.10 Upper abdominal pain, unspecified; F10.11 Alcohol abuse, in remission; E87.6 Hypokalemia; N83.202 Unspecified ovarian cyst, left side

== ENCOUNTER 2022-11-14 12:11 | Inpatient (IN) | payer OTHER ==
[~2022-11-14] VITALS: Ht 170.2 cm; Wt 36.4 kg
[~2022-11-14 12:11] MED LIST changes: -GASTROGRAFIN SOLUTION 30ML As Ordered ONE; -ISOVUE-370 76% 100ML VIAL As Ordered ONE
[2022-11-14] MEDS ORDERED: POTA1TAB23 PO (12:30)
[2022-11-14] MEDS ORDERED: LEVE250T5 PO (12:30)
[2022-11-14 13:57] LABS: BASO # 0.1 10^3/uL (0.0-0.2); BASO % 0.6 % (0.0-1.0); EOS # 0.1 10^3/uL (0.0-0.5); EOS % 0.9 % (0.0-3.0); HEMATOCRIT 40.5 % (36.0-47.0); HEMOGLOBIN 13.8 g/dl (12.0-15.5); LYMPH # 2.3 10^3/uL (1.5-5.0); LYMPH % 27.9 % (24.0-44.0); MEAN CORPUSCULAR HEMOGLOBIN 31.2 pg (27.0-33.0); MEAN CORPUSCULAR HGB CONC 34.1 g/dl (32.0-36.5); MEAN CORPUSCULAR VOLUME 91.4 fl (80.0-96.0); MONO # 0.9 10^3/uL (0.0-0.8); MONO % 11.3 % (2.0-8.0); NEUTROPHILS # 4.8 10^3/uL (1.5-8.5); NEUTROPHILS % 59.1 % (36.0-66.0); PLATELET COUNT, AUTOMATED 243 10^3/uL (150-450); RED BLOOD COUNT 4.43 10^6/uL (4.00-5.40); WHITE BLOOD COUNT 8.2 10^3/uL (4.0-10.0)
[2022-11-14 14:16] LABS: AMYLASE 29 U/L (30-118)
[2022-11-14 14:20] LABS: ALBUMIN 2.9 G/DL (3.2-5.2); ALKALINE PHOSPHATASE 90 U/L (46-116); ALT/SGPT 50 U/L (7.0-40); AST/SGOT 70 U/L (<34); BILIRUBIN,DIRECT 0.5 MG/DL (<0.4); BILIRUBIN,TOTAL 1.2 MG/DL (0.3-1.2); BLOOD UREA NITROGEN 10 MG/DL (9-23); CALCIUM LEVEL 8.9 MG/DL (8.5-10.1); CARBON DIOXIDE LEVEL 27 MMOL/L (20-31); CHLORIDE LEVEL 100 MMOL/L (98-107); CREATININE FOR GFR 0.53 MG/DL (0.55-1.30); GLOMERULAR FILTRATION RATE > 60.0 (>60); GLUCOSE, FASTING 96 MG/DL (60-100); POTASSIUM SERUM 3.9 MMOL/L (3.5-5.1); SODIUM LEVEL 136 MMOL/L (136-145); TOTAL PROTEIN 5.8 G/DL (5.7-8.2)
[2022-11-14 14:32] LABS: HCG, SERUM QUALITATIVE NEGATIVE (NEGATIVE)
[2022-11-14] MEDS ORDERED: ONDANSETRON 4MG 2ML VIAL IV ONE (16:45)
[2022-11-14] MEDS ORDERED: NS 1,000 ML IV ONE (16:45)
[2022-11-14] MEDS ORDERED: PANTOPRAZOLE 40MG VIAL IV ONE (16:45)
[2022-11-14] MEDS ORDERED: LORazepam 2 MG TAB PO PRN ×2 (16:45→20:25)
[2022-11-14] MEDS ORDERED: ISOVUE-370 76% 100ML VIAL As Ordered ONE (17:00)
[2022-11-14 18:09] LABS: INR 0.89; PROTHROMBIN TIME 12.2 SECONDS (12.5-14.5)
[2022-11-14 18:10] LABS: PARTIAL THROMBOPLASTIN TIME 24.7 SECONDS (24.8-34.2)
[2022-11-14 18:24] LABS: RSV AMPLIFICATION NEGATIVE (NEGATIVE)
[2022-11-14] MEDS ORDERED: PANT20TA6 PO (20:02)
[2022-11-14] MEDS ORDERED: DIPH-329 PO (20:04)
[2022-11-14] MEDS ORDERED: HOME MED LIST COMPLETE! XX SCH (20:05)
[2022-11-14] MEDS ORDERED: RAMELTEON 8 MG TAB (ROZEREM) PO PRN (20:25)
[2022-11-14] MEDS ORDERED: ACETAMINOPHEN TAB 650MG DOSE (2X325MG) PO PRN (20:25)
[2022-11-14] MEDS ORDERED: ONDANSETRON 4MG 2ML VIAL IV PRN (20:25)
[2022-11-14] MEDS ORDERED: THIAMINE 100 MG TAB PO SCH (21:00)
[2022-11-14] MEDS: levETIRAcetam 250MG TABLET (KEPPRA) PO SCH (21:30)
[2022-11-14] MEDS: SUCRALFATE SUSP 1GM/10ML UD PO SCH (21:30)
[2022-11-14] MEDS: POTASSIUM CHLORIDE 10MEQ SR TABLET PO SCH (21:31)
[2022-11-14] MEDS: THIAMINE 100 MG TAB PO SCH (21:31)
[2022-11-14] MEDS: PANTOPRAZOLE 20 MG TAB PO SCH (22:36)
[2022-11-14 22:50] LABS: ETHYL ALCOHOL (ETHANOL) < 0.003 % (0.000-0.010)
[2022-11-14] MEDS ORDERED: MULTIVITAMIN -ADULT INJECTION 10 ML, THIAMINE INJection 100 MG, FOLIC ACID 1 MG in NS 1... IV ONE (23:00)
[2022-11-15 08:09] LABS: HEMATOCRIT 37.7 % (36.0-47.0); HEMOGLOBIN 12.6 g/dl (12.0-15.5); MEAN CORPUSCULAR HEMOGLOBIN 30.7 pg (27.0-33.0); MEAN CORPUSCULAR HGB CONC 33.4 g/dl (32.0-36.5); PLATELET COUNT, AUTOMATED 218 10^3/uL (150-450); WHITE BLOOD COUNT 6.6 10^3/uL (4.0-10.0)
[2022-11-15] MEDS: MULTIVITAMINS/MINERALS THERAP 1 TAB PO SCH (08:39)
[2022-11-15] MEDS: levETIRAcetam 250MG TABLET (KEPPRA) PO SCH ×2 (08:39→20:44)
[2022-11-15] MEDS: SUCRALFATE SUSP 1GM/10ML UD PO SCH ×4 (08:39→20:44)
[2022-11-15] MEDS: ESCITALOPRAM OXALATE 5MG TABLET (LEXAPRO) PO SCH (08:39)
[2022-11-15] MEDS: THIAMINE 100 MG TAB PO SCH ×2 (08:39→20:44)
[2022-11-15] MEDS: POTASSIUM CHLORIDE 10MEQ SR TABLET PO SCH ×2 (08:40→20:44)
[2022-11-15] MEDS: FOLIC ACID 1MG TAB PO SCH (08:40)
[2022-11-15 08:45] LABS: ALBUMIN 2.9 G/DL (3.2-5.2); ALKALINE PHOSPHATASE 83 U/L (46-116); ALT/SGPT 47 U/L (7.0-40); AST/SGOT 67 U/L (<34); BILIRUBIN,TOTAL 1.3 MG/DL (0.3-1.2); BLOOD UREA NITROGEN 9 MG/DL (9-23); CALCIUM LEVEL 8.4 MG/DL (8.5-10.1); CARBON DIOXIDE LEVEL 25 MMOL/L (20-31); CHLORIDE LEVEL 101 MMOL/L (98-107); CREATININE FOR GFR 0.49 MG/DL (0.55-1.30); GLOMERULAR FILTRATION RATE > 60.0 (>60); GLUCOSE, FASTING 87 MG/DL (60-100); MAGNESIUM LEVEL 1.5 MG/DL (1.8-2.4); POTASSIUM SERUM 4.5 MMOL/L (3.5-5.1); SODIUM LEVEL 135 MMOL/L (136-145); TOTAL PROTEIN 5.7 G/DL (5.7-8.2)
[2022-11-15] MEDS ORDERED: MULTIVITAMINS/MINERALS THERAP 1 TAB PO SCH (09:00)
[2022-11-15] MEDS ORDERED: FOLIC ACID 1MG TAB PO SCH (09:00)
[2022-11-15] MEDS: PANTOPRAZOLE 20 MG TAB PO SCH ×2 (09:07→20:44)
[2022-11-15] MEDS: NICOTINE 14 MG/24 HR TRANSDERMAL TD SCH (09:07)
[2022-11-15 14:00] VITALS: BP 114/88
[2022-11-15] MEDS ORDERED: MAG SULF 1GM/100ML (MAG RUN) 1 GM in IV 1 EA IV ONE (14:00)
[2022-11-15 20:00] VITALS: BP 108/70
[2022-11-15 20:46] VITALS: BP 107/72
[2022-11-16 05:19] VITALS: BP_SYST 116; BP_SYST 117; BP_SYST 120; BP_DIAS 85; BP_DIAS 86
[2022-11-16 05:25] VITALS: BP 117/86
[2022-11-16 06:26] LABS: HEMATOCRIT 38.6 % (36.0-47.0); HEMOGLOBIN 13.1 g/dl (12.0-15.5); MEAN CORPUSCULAR HEMOGLOBIN 30.8 pg (27.0-33.0); MEAN CORPUSCULAR HGB CONC 33.9 g/dl (32.0-36.5); MEAN CORPUSCULAR VOLUME 90.8 fl (80.0-96.0); PLATELET COUNT, AUTOMATED 221 10^3/uL (150-450); RED BLOOD COUNT 4.25 10^6/uL (4.00-5.40); WHITE BLOOD COUNT 6.4 10^3/uL (4.0-10.0)
[2022-11-16 06:53] LABS: ALBUMIN 2.9 G/DL (3.2-5.2); ALKALINE PHOSPHATASE 85 U/L (46-116); ALT/SGPT 50 U/L (7.0-40); AST/SGOT 67 U/L (<34); BILIRUBIN,TOTAL 1.3 MG/DL (0.3-1.2); BLOOD UREA NITROGEN 5 MG/DL (9-23); CALCIUM LEVEL 8.5 MG/DL (8.5-10.1); CARBON DIOXIDE LEVEL 28 MMOL/L (20-31); CHLORIDE LEVEL 98 MMOL/L (98-107); CREATININE FOR GFR 0.46 MG/DL (0.55-1.30); GLOMERULAR FILTRATION RATE > 60.0 (>60); GLUCOSE, FASTING 72 MG/DL (60-100); MAGNESIUM LEVEL 1.9 MG/DL (1.8-2.4); POTASSIUM SERUM 4.2 MMOL/L (3.5-5.1); SODIUM LEVEL 136 MMOL/L (136-145); TOTAL PROTEIN 5.9 G/DL (5.7-8.2)
[2022-11-16] MEDS ORDERED: ONDANSETRON 4MG ORAL DISINTEGRATING TAB PO PRN (07:00)
[2022-11-16] MEDS: MULTIVITAMINS/MINERALS THERAP 1 TAB PO SCH (09:45)
[2022-11-16] MEDS: SUCRALFATE SUSP 1GM/10ML UD PO SCH ×2 (09:45→12:04)
[2022-11-16] MEDS: FOLIC ACID 1MG TAB PO SCH (09:46)
[2022-11-16] MEDS: levETIRAcetam 250MG TABLET (KEPPRA) PO SCH (09:46)
[2022-11-16] MEDS: PANTOPRAZOLE 20 MG TAB PO SCH (09:46)
[2022-11-16] MEDS: POTASSIUM CHLORIDE 10MEQ SR TABLET PO SCH (09:46)
[2022-11-16] MEDS: THIAMINE 100 MG TAB PO SCH (09:46)
[2022-11-16] MEDS: NICOTINE 14 MG/24 HR TRANSDERMAL TD SCH (09:47)
[2022-11-16] MEDS: ESCITALOPRAM OXALATE 5MG TABLET (LEXAPRO) PO SCH (09:57)
[2022-11-16] MEDS ORDERED: FOLI1TAB11 PO (11:14)
[2022-11-16] MEDS ORDERED: NICO14PA TD (11:14)
[2022-11-16] MEDS ORDERED: THIA100TA PO (11:14)
[2022-11-16] MEDS ORDERED: VITMTA PO (11:14)
[2022-11-16] MEDS ORDERED: PANT20TA6 PO (11:14)
[2022-11-16] MEDS ORDERED: ONDA4TAB6 PO (11:14)
[2022-11-16] MEDS ORDERED: FIDA200TA PO (13:14)
[2022-11-16] MEDS ORDERED: FAMO40TA3 PO (13:14)
[2022-11-16] MEDS ORDERED: SUCR1ORA PO (13:39)
[2022-11-16] MEDS ORDERED: VANC125C3 PO (13:51)
[2022-11-16] MEDS ORDERED: FIDAXOMICIN 200 MG TAB (DIFICID) PO SCH (14:00)
[2022-11-18 17:09] LABS: H PYLORI SERUM QUANT IGA <9.0 units (0.0-8.9)
== END 2022-11-16 14:48 | disposition home or self-care (01) | DRG 248 ==
LOC: M ED 12:11 → M ED INP 20:21 → M MSPAV 11-15 14:21
PROVIDERS: ADMIT Internal Medicine; ATTEND Internal Medicine
DX: A04.72 Enterocolitis due to Clostridium difficile, not specified as recurrent (principal); F10.10 Alcohol abuse, uncomplicated; Z79.899 Other long term (current) drug therapy; K21.9 Gastro-esophageal reflux disease without esophagitis; D50.9 Iron deficiency anemia, unspecified; E55.9 Vitamin D deficiency, unspecified; R56.9 Unspecified convulsions; F12.90 Cannabis use, unspecified, uncomplicated; R11.2 Nausea with vomiting, unspecified; Z68.1 Body mass index [BMI] 19.9 or less, adult; E43 Unspecified severe protein-calorie malnutrition; F41.9 Anxiety disorder, unspecified; F43.21 Adjustment disorder with depressed mood

== ENCOUNTER 2022-11-27 12:16 | Inpatient (IN) | payer OTHER ==
[~2022-11-27] VITALS: Ht 170.2 cm; Wt 38.1 kg
[2022-11-27] MEDS: NICOTINE 14 MG/24 HR TRANSDERMAL TOP SCH (09:00)
[~2022-11-27 12:16] MED LIST changes: +DIPH-329 PO; +FAMO40TA3 PO; +FIDA200TA PO; +LEVE250T5 PO; +ONDA4TAB6 PO; +POTA1TAB23 PO; +SUCR1ORA PO; +VANC125C3 PO
[2022-11-27] MEDS ORDERED: PROMETHAZINE 25MG/ML 1ML VIAL IV ONE (13:10)
[2022-11-27] MEDS ORDERED: MULTIVITAMIN -ADULT INJECTION 10 ML, THIAMINE INJection 100 MG, FOLIC ACID 1 MG in NS 1... IV ONE (13:10)
[2022-11-27] MEDS ORDERED: FAMOTIDINE 20MG/2ML VIAL IVP ONE (13:10)
[2022-11-27] MEDS: GASTROGRAFIN SOLUTION 30ML PO SCH ×2 (13:42→13:45)
[2022-11-27 13:50] LABS: BASO % 0.1 % (0.0-1.0); EOS % 0.1 % (0.0-3.0); HEMATOCRIT 45.5 % (36.0-47.0); LYMPH # 1.3 10^3/uL (1.5-5.0); LYMPH % 11.5 % (24.0-44.0); MEAN CORPUSCULAR HEMOGLOBIN 30.9 pg (27.0-33.0); MEAN CORPUSCULAR HGB CONC 35.2 g/dl (32.0-36.5); MEAN CORPUSCULAR VOLUME 87.8 fl (80.0-96.0); MONO # 1.2 10^3/uL (0.0-0.8); MONO % 10.3 % (2.0-8.0); NEUTROPHILS # 8.9 10^3/uL (1.5-8.5); NEUTROPHILS % 77.6 % (36.0-66.0); PLATELET COUNT, AUTOMATED 290 10^3/uL (150-450); RED BLOOD COUNT 5.18 10^6/uL (4.00-5.40); WHITE BLOOD COUNT 11.4 10^3/uL (4.0-10.0)
[2022-11-27 14:12] LABS: ALBUMIN 3.8 G/DL (3.2-5.2); ALKALINE PHOSPHATASE 88 U/L (46-116); ALT/SGPT 66 U/L (7.0-40); AST/SGOT 108 U/L (<34); BILIRUBIN,DIRECT 0.5 MG/DL (<0.4); LIPASE 35 U/L (12-53); TOTAL PROTEIN 7.8 G/DL (5.7-8.2)
[2022-11-27] MEDS ORDERED: ISOVUE-370 76% 100ML VIAL As Ordered ONE (14:45)
[2022-11-27] MEDS ORDERED: GI COCKTAIL 50ML BTL(HYOSCYAMINE/MAALOX/LIDOCAINE VISCOUS)(1:3:1) PO ONE (17:40)
[2022-11-27] MEDS ORDERED: LORazepam 2 MG/ML 1ML VIAL IV PRN (18:20)
[2022-11-27] MEDS ORDERED: LORazepam 2 MG TAB PO PRN (18:20)
[2022-11-27] MEDS ORDERED: SUCR1TAB56 PO (18:31)
[2022-11-27] MEDS ORDERED: HYDR-3363 PO (18:31)
[2022-11-27] MEDS ORDERED: FAMO40TA3 PO (18:31)
[2022-11-27] MEDS ORDERED: NICO1DIS9 TOP (18:31)
[2022-11-27] MEDS ORDERED: THERTAB21 PO (18:31)
[2022-11-27] MEDS ORDERED: HOME MED LIST COMPLETE! XX SCH (18:35)
[2022-11-27] MEDS: NS 1,000 ML IV SCH (18:41)
[2022-11-27 18:51] LABS: HCG, SERUM QUANTITATIVE < 2.6 MIU/ML (<4.2)
[2022-11-27 19:28] LABS: RSV AMPLIFICATION NEGATIVE (NEGATIVE)
[2022-11-27 20:24] VITALS: BP 113/85
[2022-11-27] MEDS: CAPSAICIN 0.025% CR 60 GM TOP SCH (21:00)
[2022-11-27 22:00] VITALS: BP 118/72
[2022-11-27] MEDS: FAMOTIDINE 40MG/5ML ORAL SUSPENSON 50ML BOTTLE PO SCH (22:59)
[2022-11-27] MEDS: THIAMINE 100 MG TAB PO SCH (22:59)
[2022-11-27] MEDS: levETIRAcetam 250MG TABLET (KEPPRA) PO SCH (22:59)
[2022-11-27] MEDS: FIDAXOMICIN 200 MG TAB (DIFICID) PO SCH (22:59)
[2022-11-28] MEDS ORDERED: MORPHINE 2 MG/ML 1ML VIAL IV ONE (04:00)
[2022-11-28 05:36] VITALS: BP 111/75
[2022-11-28] MEDS: NS 1,000 ML IV SCH ×2 (05:36→15:34)
[2022-11-28 06:00] VITALS: BP 111/75
[2022-11-28 06:59] LABS: HEMATOCRIT 32.9 % (36.0-47.0); MEAN CORPUSCULAR HGB CONC 34.3 g/dl (32.0-36.5); MEAN CORPUSCULAR VOLUME 90.1 fl (80.0-96.0); RED BLOOD COUNT 3.65 10^6/uL (4.00-5.40); WHITE BLOOD COUNT 6.4 10^3/uL (4.0-10.0)
[2022-11-28 07:07] LABS: HEMOGLOBIN 11.3 g/dl (12.0-15.5); PLATELET COUNT, AUTOMATED 183 10^3/uL (150-450)
[2022-11-28 07:20] LABS: BLOOD UREA NITROGEN 20 MG/DL (9-23); CALCIUM LEVEL 7.5 MG/DL (8.5-10.1); CARBON DIOXIDE LEVEL 32 MMOL/L (20-31); CHLORIDE LEVEL 97 MMOL/L (98-107); CREATININE FOR GFR 0.89 MG/DL (0.55-1.30); GLOMERULAR FILTRATION RATE > 60.0 (>60); GLUCOSE, FASTING 74 MG/DL (60-100); MAGNESIUM LEVEL 2.1 MG/DL (1.8-2.4); POTASSIUM SERUM 2.8 MMOL/L (3.5-5.1); SODIUM LEVEL 137 MMOL/L (136-145)
[2022-11-28] MEDS: FOLIC ACID 1MG TAB PO SCH (08:50)
[2022-11-28] MEDS: POTASSIUM CHLORIDE 10% LIQ 20MEQ/15ML UDC PO SCH ×2 (08:50→11:59)
[2022-11-28] MEDS: FIDAXOMICIN 200 MG TAB (DIFICID) PO SCH ×2 (08:50→20:19)
[2022-11-28] MEDS: levETIRAcetam 250MG TABLET (KEPPRA) PO SCH ×2 (08:50→20:19)
[2022-11-28] MEDS: MULTIVITAMINS/MINERALS THERAP 1 TAB PO SCH (08:50)
[2022-11-28] MEDS: SUCRALFATE 1 GM TAB PO SCH ×3 (08:50→17:21)
[2022-11-28] MEDS: THIAMINE 100 MG TAB PO SCH ×2 (08:50→20:19)
[2022-11-28] MEDS: ENOXAPARIN 40MG/0.4ML SYRINGE (J1650 PER 10MG) SC SCH (08:51)
[2022-11-28] MEDS: FAMOTIDINE 40MG/5ML ORAL SUSPENSON 50ML BOTTLE PO SCH ×2 (08:51→20:19)
[2022-11-28] MEDS: NICOTINE 14 MG/24 HR TRANSDERMAL TOP SCH (08:52)
[2022-11-28] MEDS ORDERED: FIDA200TA PO (09:50)
[2022-11-28] MEDS: CAPSAICIN 0.025% CR 60 GM TOP SCH ×2 (12:00→20:19)
[2022-11-28 12:52] LABS: ALBUMIN 2.3 G/DL (3.2-5.2); ALKALINE PHOSPHATASE 51 U/L (46-116); ALT/SGPT 55 U/L (7.0-40); AST/SGOT 102 U/L (<34); BILIRUBIN,DIRECT 0.4 MG/DL (<0.4); BILIRUBIN,TOTAL 0.7 MG/DL (0.3-1.2); BLOOD UREA NITROGEN 18 MG/DL (9-23); CALCIUM LEVEL 7.5 MG/DL (8.5-10.1); CARBON DIOXIDE LEVEL 30 MMOL/L (20-31); CHLORIDE LEVEL 100 MMOL/L (98-107); CREATININE FOR GFR 0.75 MG/DL (0.55-1.30); GLOMERULAR FILTRATION RATE > 60.0 (>60); GLUCOSE, FASTING 73 MG/DL (60-100); POTASSIUM SERUM 3.4 MMOL/L (3.5-5.1); SODIUM LEVEL 136 MMOL/L (136-145); TOTAL PROTEIN 4.7 G/DL (5.7-8.2)
[2022-11-28 14:00] VITALS: BP 111/75
[2022-11-28] MEDS ORDERED: KCL 10MEQ/100ML SWI (KRUN) 10 MEQ in IV 1 EA IV SCH (14:00)
[2022-11-28] MEDS: KETOROLAC 30 MG/ML 1ML VIAL IV PRN ×2 (17:22→23:32)
[2022-11-28 20:20] VITALS: BP 109/75
[2022-11-28 22:00] VITALS: BP 109/75
[2022-11-29] MEDS: NS 1,000 ML IV SCH ×2 (01:46→13:21)
[2022-11-29 06:00] VITALS: BP 110/76
[2022-11-29 06:56] LABS: HEMOGLOBIN 10.9 g/dl (12.0-15.5); MEAN CORPUSCULAR HEMOGLOBIN 31.1 pg (27.0-33.0); MEAN CORPUSCULAR HGB CONC 34.1 g/dl (32.0-36.5); MEAN CORPUSCULAR VOLUME 91.2 fl (80.0-96.0); PLATELET COUNT, AUTOMATED 181 10^3/uL (150-450); RED BLOOD COUNT 3.51 10^6/uL (4.00-5.40); WHITE BLOOD COUNT 7.1 10^3/uL (4.0-10.0)
[2022-11-29 07:46] LABS: ALBUMIN 2.4 G/DL (3.2-5.2); ALKALINE PHOSPHATASE 54 U/L (46-116); ALT/SGPT 62 U/L (7.0-40); AST/SGOT 86 U/L (<34); BILIRUBIN,TOTAL 0.7 MG/DL (0.3-1.2); BLOOD UREA NITROGEN 9 MG/DL (9-23); CALCIUM LEVEL 7.5 MG/DL (8.5-10.1); CARBON DIOXIDE LEVEL 30 MMOL/L (20-31); CHLORIDE LEVEL 104 MMOL/L (98-107); CREATININE FOR GFR 0.67 MG/DL (0.55-1.30); GLOMERULAR FILTRATION RATE > 60.0 (>60); GLUCOSE, FASTING 75 MG/DL (60-100); MAGNESIUM LEVEL 1.7 MG/DL (1.8-2.4); PHOSPHORUS LEVEL 1.9 MG/DL (2.5-4.9); POTASSIUM SERUM 3.3 MMOL/L (3.5-5.1); SODIUM LEVEL 139 MMOL/L (136-145); TOTAL PROTEIN 4.8 G/DL (5.7-8.2)
[2022-11-29] MEDS: SUCRALFATE 1 GM TAB PO SCH ×2 (08:41→12:00)
[2022-11-29] MEDS: FAMOTIDINE 40MG/5ML ORAL SUSPENSON 50ML BOTTLE PO SCH (08:41)
[2022-11-29] MEDS: ENOXAPARIN 40MG/0.4ML SYRINGE (J1650 PER 10MG) SC SCH (08:41)
[2022-11-29] MEDS: CAPSAICIN 0.025% CR 60 GM TOP SCH (08:42)
[2022-11-29] MEDS ORDERED: K-PHOS ORIGINAL (POT.ACID PHOSPHATE) 500MG TAB PO ONE (09:10)
[2022-11-29] MEDS ORDERED: CAPS25CR TOP (09:21)
[2022-11-29] MEDS: THIAMINE 100 MG TAB PO SCH (09:35)
[2022-11-29] MEDS: FIDAXOMICIN 200 MG TAB (DIFICID) PO SCH (09:35)
[2022-11-29] MEDS: FOLIC ACID 1MG TAB PO SCH (09:35)
[2022-11-29] MEDS: levETIRAcetam 250MG TABLET (KEPPRA) PO SCH (09:35)
[2022-11-29] MEDS: MULTIVITAMINS/MINERALS THERAP 1 TAB PO SCH (09:35)
[2022-11-29 09:53] LABS: HEPATITIS B SURFACE ANTIGEN NEGATIVE (NEGATIVE)
[2022-11-29 10:14] LABS: HEPATITIS C VIRUS ABY INDEX 0.8 INDEX (<0.8)
[2022-11-29 10:15] LABS: HEPATITIS B CORE ANTIBODY IGM NEGATIVE (NEGATIVE)
[2022-11-29] MEDS: POTASSIUM CHLORIDE 10% LIQ 20MEQ/15ML UDC PO SCH ×2 (10:31→12:00)
[2022-11-29] MEDS: NICOTINE 14 MG/24 HR TRANSDERMAL TOP SCH (10:31)
[2022-11-29] MEDS: MAG SULF 1GM/100ML (MAG RUN) 1 GM in IV 1 EA IV SCH ×2 (10:36→12:00)
[2022-11-29] MEDS: KETOROLAC 30 MG/ML 1ML VIAL IV PRN (10:37)
== END 2022-11-29 13:00 | disposition home or self-care (01) | DRG 248 ==
LOC: M ED 12:16 → M ED INP 18:00 → M MSPAV 20:18
PROVIDERS: ADMIT Internal Medicine; ATTEND Internal Medicine
DX: A04.72 Enterocolitis due to Clostridium difficile, not specified as recurrent (principal); E43 Unspecified severe protein-calorie malnutrition; E87.3 Alkalosis; E87.1 Hypo-osmolality and hyponatremia; D50.9 Iron deficiency anemia, unspecified; F10.10 Alcohol abuse, uncomplicated; E55.9 Vitamin D deficiency, unspecified; K21.9 Gastro-esophageal reflux disease without esophagitis; G43.909 Migraine, unspecified, not intractable, without status migrainosus; G40.909 Epilepsy, unspecified, not intractable, without status epilepticus; G47.00 Insomnia, unspecified; F17.210 Nicotine dependence, cigarettes, uncomplicated; F41.9 Anxiety disorder, unspecified; R74.01 Elevation of levels of liver transaminase levels; Z68.1 Body mass index [BMI] 19.9 or less, adult; Z79.2 Long term (current) use of antibiotics; Z79.899 Other long term (current) drug therapy; Z20.822 Contact with and (suspected) exposure to COVID-19

== ENCOUNTER → 2022-12-03 | Outpatient (REF) | payer OTHER ==
[~2022-12-03] MED LIST changes: +CAPS25CR TOP; +HYDR-3363 PO; +NICO1DIS9 TOP; +SUCR1TAB56 PO; +THERTAB21 PO
[2022-12-03 17:24] LABS: BASO % 0.6 % (0.0-1.0); EOS # 0.1 10^3/uL (0.0-0.5); EOS % 1.2 % (0.0-3.0); HEMATOCRIT 38.4 % (36.0-47.0); HEMOGLOBIN 12.4 g/dl (12.0-15.5); LYMPH # 1.5 10^3/uL (1.5-5.0); LYMPH % 22.2 % (24.0-44.0); MEAN CORPUSCULAR HEMOGLOBIN 30.8 pg (27.0-33.0); MEAN CORPUSCULAR HGB CONC 32.3 g/dl (32.0-36.5); MEAN CORPUSCULAR VOLUME 95.5 fl (80.0-96.0); MONO # 1.2 10^3/uL (0.0-0.8); MONO % 18.1 % (2.0-8.0); NEUTROPHILS # 3.7 10^3/uL (1.5-8.5); NEUTROPHILS % 57.1 % (36.0-66.0); PLATELET COUNT, AUTOMATED 369 10^3/uL (150-450); RED BLOOD COUNT 4.02 10^6/uL (4.00-5.40); WHITE BLOOD COUNT 6.5 10^3/uL (4.0-10.0)
[2022-12-03 17:49] LABS: BLOOD UREA NITROGEN 8 MG/DL (9-23); CALCIUM LEVEL 8.7 MG/DL (8.5-10.1); CARBON DIOXIDE LEVEL 26 MMOL/L (20-31); CHLORIDE LEVEL 103 MMOL/L (98-107); CREATININE FOR GFR 0.57 MG/DL (0.55-1.30); GLOMERULAR FILTRATION RATE > 60.0 (>60); GLUCOSE, FASTING 74 MG/DL (60-100); MAGNESIUM LEVEL 1.5 MG/DL (1.8-2.4); SODIUM LEVEL 138 MMOL/L (136-145)
== END ==
LOC: M LAB REF 16:20
PROVIDERS: ATTEND Nurse Practitioner Family
DX: A04.72 Enterocolitis due to Clostridium difficile, not specified as recurrent (principal); E83.42 Hypomagnesemia

== ENCOUNTER 2023-03-23 13:47 | Emergency (ER) | payer OTHER ==
[~2023-03-23] VITALS: Ht 167.6 cm; Wt 41.7 kg
[2023-03-23 13:49] VITALS: TEMP 97.8; O2SAT 100
[2023-03-23 14:55] LABS: BASO % 0.3 % (0.0-1.0); EOS # 0.1 10^3/uL (0.0-0.5); EOS % 0.9 % (0.0-3.0); HEMATOCRIT 34.1 % (36.0-47.0); HEMOGLOBIN 11.6 g/dl (12.0-15.5); LYMPH # 1.5 10^3/uL (1.5-5.0); LYMPH % 22.6 % (24.0-44.0); MEAN CORPUSCULAR HEMOGLOBIN 31.6 pg (27.0-33.0); MEAN CORPUSCULAR VOLUME 92.9 fl (80.0-96.0); MONO # 0.4 10^3/uL (0.0-0.8); MONO % 6.2 % (2.0-8.0); NEUTROPHILS # 4.5 10^3/uL (1.5-8.5); NEUTROPHILS % 69.7 % (36.0-66.0); PLATELET COUNT, AUTOMATED 151 10^3/uL (150-450); RED BLOOD COUNT 3.67 10^6/uL (4.00-5.40); WHITE BLOOD COUNT 6.5 10^3/uL (4.0-10.0)
[2023-03-23 15:17] LABS: ALBUMIN 4.3 G/DL (3.2-5.2); BILIRUBIN,DIRECT 0.2 MG/DL (<0.4); BILIRUBIN,TOTAL 0.6 MG/DL (0.3-1.2); TOTAL PROTEIN 7.4 G/DL (5.7-8.2)
[2023-03-23] MEDS ORDERED: NS 1,000 ML IV ONE (17:25)
[2023-03-23] MEDS ORDERED: MIRA3350 PO (18:17)
[2023-03-23] MEDS ORDERED: ANUS25SU PR (18:17)
[2023-03-23 18:46] VITALS: BP 131/86
== END 2023-03-23 18:47 | disposition home or self-care (01) ==
LOC: M ED 13:47
DX: K92.2 Gastrointestinal hemorrhage, unspecified (principal); F12.10 Cannabis abuse, uncomplicated; Z79.810 Long term (current) use of selective estrogen receptor modulators (SERMs); Z79.899 Other long term (current) drug therapy

== ENCOUNTER 2023-12-31 13:16 | Emergency (ER) | payer OTHER ==
[~2023-12-31] VITALS: Ht 170.2 cm; Wt 42.7 kg
[~2023-12-31 13:16] MED LIST changes: +ANUS25SU PR; -DIPH-329 PO; +DIPH-448 PO; +IRON27TA2 PO; +LORA-1041; -LORA-674; +MIRA3350 PO
[2023-12-31] MEDS: IBUPROFEN 400MG TAB PO ONE (15:00)
[2023-12-31] MEDS ORDERED: NIRM1TAB14 PO (15:08)
[2023-12-31] MEDS ORDERED: BENZ200C70 PO (15:39)
[2023-12-31 15:47] VITALS: BP 115/76; TEMP 97.9; O2SAT 99
== END 2023-12-31 15:48 | disposition home or self-care (01) ==
LOC: M ED 13:16
DX: U07.1 COVID-19 (principal); R07.1 Chest pain on breathing; K21.9 Gastro-esophageal reflux disease without esophagitis; G43.909 Migraine, unspecified, not intractable, without status migrainosus; F10.10 Alcohol abuse, uncomplicated; F17.200 Nicotine dependence, unspecified, uncomplicated; Z79.810 Long term (current) use of selective estrogen receptor modulators (SERMs); Z79.83 Long term (current) use of bisphosphonates; Z79.899 Other long term (current) drug therapy